=== PATIENT | male | born 1960 | race Hispanic/Latino ===

== ENCOUNTER 2016-10-15 15:43 | Emergency (ER) | payer MEDICARE ==
[2016-10-15 15:43] VITALS: BMI 25.8
[2016-10-15 16:21] VITALS: BP 130/71; PULSE 110; RESP 20; TEMP 97.9; O2SAT 99
--- NOTE | 2016-10-15 19:04 | ED PDOC ---
"Lower Extremity Pain/Injury Time Seen by Provider: 10/15/16 17:12 Chief Complaint (Nursing): Lower Extremity Problem/Injury Chief Complaint (Provider): Lower Extremity Problem History Per: Patient History/Exam Limitations: no limitations Onset/Duration Of Symptoms: Days (x2-3 months) Current Symptoms Are (Timing): Still Present Severity: Moderate Additional Complaint(s): Deshaun Mendoza is a 55 year old male, with a past medical history of CAD, CHF, HTN, and HLD, who presents to the emergency department complaining of bilateral groin pain for the past 2 to 3 months. Patient states having a cardiac catheterization test done in his right groin at [facility] and having a coronary stent placement done in his left groin at [facility] which reportedly caused pain to radiate throughout his thighs bilaterally. He recently had an MRI done by Dr. Driver which caused him to find out that he had a mild spinal disease. Patient comes to the ER today looking to be prescribed medication for pain relief. Of note, the patient has been taking Advil and Tylenol for his pain; however, it has provided no relief, prompting his visit to the emergency department. PMD: Mervat Zambrano Past Medical History Reviewed: Historical Data, Nursing Documentation, Vital Signs Vital Signs: Last Vital Signs Temp 97.9 F 10/15/16 16:17 Pulse 110 H 10/15/16 16:17 Resp 20 10/15/16 16:17 BP 130/71 10/15/16 16:17 Pulse Ox 99 10/15/16 16:17 - Medical History PMH: Asthma, Bronchitis, CAD, CHF, COPD, Fractures (right foot), Hiatal Hernia, HTN, Hyperlipidemia, Pneumothorax, Schizophrenia (denies) Denies: Chronic Kidney Disease - Surgical History Surgical History: Coronary Stent (x2) - Family History Family History: States: Unknown Family Hx - Social History Current smoker - smoking cessation education provided: Yes (10-15 cigarettes daily) Alcohol: Occasional Drugs: Denies - Immunization History Hx Tetanus Toxoid Vaccination: No Hx Influenza Vaccination: No Hx Pneumococcal Vaccination: No - Home Medications Home Medications: Ambulatory Orders Medication Instructions Recorded Metoprolol Tartrate [Lopressor] 25 mg PO BID 04/25/16 Aspirin [Aspirin Chewable] 81 mg PO DAILY 07/25/16 Clopidogrel [Plavix] 75 mg PO DAILY 07/25/16 Atorvastatin [Lipitor] 40 mg DAILY 09/06/16 Gabapentin [Neurontin] 100 mg HS 09/06/16 Omeprazole [Omeprazole] 20 mg DAILY 09/06/16 Tramadol HCl [Ultram] 50 mg PO BID PRN #14 tablet 09/06/16 - Allergies Allergies/Adverse Reactions: Allergies Allergy/AdvReac Type Severity Reaction Status Date / Time No Known Allergies Allergy Verified 10/15/16 16:17 Review of Systems Musculoskeletal: Positive for: Back Pain, Leg Pain Skin: Negative for: Rash Neurological: Negative for: Weakness, Numbness Physical Exam - Reviewed Nursing Documentation Reviewed: Yes Vital Signs Reviewed: Yes - Physical Exam Appears: Positive for: Non-toxic, No Acute Distress Head Exam: Positive for: ATRAUMATIC, NORMOCEPHALIC Skin: Positive for: Normal Color, Dry Eye Exam: Positive for: Normal appearance Neck: Positive for: Normal, Painless ROM Respiratory: Negative for: Respiratory Distress Pulses-Dorsalis Pedis (L): 2+ Pulses-Dorsalis Pedis (R): 2+ Pulses-Post. Tibialis (L): 2+ Pulses-Post. Tibialis (R): 2+ Extremity: Positive for: Normal ROM. Negative for: Tenderness, Pedal Edema, Calf Tenderness, Swelling, Other (no ecchymosis) Neurologic/Psych: Positive for: Alert, Oriented. Negative for: Motor/Sensory Deficits - ECG O2 Sat by Pulse Oximetry: 99 (RA) - Progress ED Course And Treament: IMPRESSION: No occlusion. No pseudoaneurysm. CARAASHISHDESHAUN | Final Radiology Report CONFIDENTIALITY STATEMENT This report is intended only for use by the referring physician, and only in accordance with law. If you received this in error, call [phone]. Page 2 of 2 Thank you for allowing us to participate in the care of your patient. Dictated and Authenticated by: Yandel Sullivan MD Medical Decision Making Medical Decision Makin:12 Initial Impression: bilateral groin pain Initial Plan: * US Duplex Lower Extrm Artr Bilat * Ultram 50mg PO * Reevaluation Scribe Attestation: Documented by Ozzy Murphy, training under Aziza Novak, acting as a scribe for Heaven KASPER. Provider Scribe Attestation: All medical record entries made by the Scribe were at my direction and personally dictated by me. I have reviewed the chart and agree that the record accurately reflects my personal performance of the history, physical exam, medical decision making, and the department course for this patient. I have also personally directed, reviewed, and agree with the discharge instructions and disposition. Disposition - Clinical Impression Clinical Impression: Groin pain - Patient ED Disposition Is Patient to be Admitted: No - Disposition Disposition: Routine/Home Disposition Time: 21:19 Condition: FAIR Additional Instructions: f/u with your pmd for further evaluation. Instructions: Muscle Strain (ED)"
--- NOTE | 2016-10-15 21:08 | US ---
EXAM: US Duplex Bilateral Lower Extremity Arteries CLINICAL HISTORY: 55 years old, male; Signs and symptoms; Other: Cluadication; Additional info: Evaluation of pseudoaneurysm TECHNIQUE: Real-time ultrasound scan of the arteries of the bilateral lower extremities with 2-D wagoner scale, color Doppler flow and spectral waveform analysis. COMPARISON: No relevant prior studies available. FINDINGS: RIGHT- BUSINESS IMPROVEMENT MANAGER: 130 cm/s, triphasic SFA proximal: 62 cm/s, triphasic SFA mid: 44 cm/s, triphasic SFA distal: 41 cm/s, triphasic Popliteal: 27 cm/s, biphasic COSTA: 37 cm/s, biphasic DIETARY ASSISTANT: 25 cm/s, biphasic DPA: 36 cm/s, biphasic LEFT - BUSINESS IMPROVEMENT MANAGER: 78 cm/s, triphasic SFA proximal: 45 cm/s, triphasic SFA mid: 52 cm/s, triphasic SFA distal: 55 cm/s, triphasic Popliteal: 35 cm/s, triphasic COSTA: 25 cm/s, triphasic DIETARY ASSISTANT: 26 cm/s, biphasic DPA: 30 cm/s, biphasic IMPRESSION: No occlusion. No pseudoaneurysm.
== END 2016-10-15 21:31 | disposition home or self-care (01) ==
LOC: H.ER 15:43
DX: R10.30 Lower abdominal pain, unspecified (principal); Z98.890 Other specified postprocedural states

== ENCOUNTER 2017-01-07 17:28 | Emergency (ER) | payer MEDICARE ==
[2017-01-07 17:29] VITALS: BMI 25.8
--- NOTE | 2017-01-07 18:29 | ED PDOC ---
HPI: CCC, URI, Sore Throat Time Seen by Provider: 01/07/17 17:40 Chief Complaint (Nursing): Cough, Cold, Congestion Chief Complaint (Provider): Cough History Per: Patient History/Exam Limitations: no limitations Onset/Duration Of Symptoms: Days (3) Current Symptoms Are (Timing): Still Present Associated Symptoms: Sore Throat, Sputum, Nasal Congestion. denies: Fever Additional Complaint(s): Bill Mendoza is a 56 y/o male, with a past medical history of COPD, PTX, and multiple leg fractures, presenting to the ER on 01/07/2017 with complaints of a cough associated with green sputum for three days. Patient states his cough gets worse as night and is associated with pain near his rib cage, dyspnea, throat tightness, and rhinorrhea. He denies any fever. He follows up routinely with the clinic. Patient additionally states he takes baby aspirin every morning and has not used his inhaler in over a month. Past Medical History Reviewed: Historical Data, Nursing Documentation, Vital Signs Vital Signs: Last Vital Signs Temp 98.6 F 01/07/17 22:15 Pulse 100 H 01/07/17 22:15 Resp 18 01/07/17 22:15 BP 119/79 01/07/17 22:15 Pulse Ox 98 01/08/17 05:28 - Medical History PMH: Asthma, Bronchitis, CAD, CHF, COPD, Fractures (right foot), Hiatal Hernia, HTN, Hyperlipidemia, Pneumothorax, Schizophrenia (denies) Denies: Chronic Kidney Disease - Surgical History Surgical History: Coronary Stent (x2) - Family History Family History: States: Unknown Family Hx - Social History Current smoker - smoking cessation education provided: Yes (6 cigarettes per day ) - Immunization History Hx Tetanus Toxoid Vaccination: No Hx Influenza Vaccination: No Hx Pneumococcal Vaccination: No - Home Medications Home Medications: Ambulatory Orders Medication Instructions Recorded Metoprolol Tartrate [Lopressor] 25 mg PO BID 04/25/16 Aspirin [Aspirin Chewable] 81 mg PO DAILY 07/25/16 Clopidogrel [Plavix] 75 mg PO DAILY 07/25/16 Atorvastatin [Lipitor] 40 mg DAILY 09/06/16 Gabapentin [Neurontin] 100 mg HS 09/06/16 Omeprazole [Omeprazole] 20 mg DAILY 09/06/16 Tramadol HCl [Ultram] 50 mg PO BID PRN #14 tablet 09/06/16 Albuterol HFA [Ventolin HFA 90 1 - 2 puff IH Q4H PRN #1 bottle 01/07/17 mcg/actuation (8 g)] predniSONE [Prednisone] 40 mg PO DAILY #8 tab 01/07/17 - Allergies Allergies/Adverse Reactions: Allergies Allergy/AdvReac Type Severity Reaction Status Date / Time No Known Allergies Allergy Verified 01/07/17 17:31 Review of Systems ROS Statement: Except As Marked, All Systems Reviewed And Found Negative Constitutional: Negative for: Fever ENT: Positive for: Nose Congestion, Throat Pain Respiratory: Positive for: Cough, Sputum, Other ((+) dyspnea ) Musculoskeletal: Positive for: Other ((+) rib pain ) Physical Exam - Reviewed Nursing Documentation Reviewed: Yes Vital Signs Reviewed: Yes - Physical Exam Appears: Positive for: Non-toxic, No Acute Distress. Negative for: Uncomfortable (pt appears comfortable ) Head Exam: Positive for: ATRAUMATIC, NORMOCEPHALIC Skin: Positive for: Normal Color. Negative for: Rash Eye Exam: Positive for: Normal appearance, EOMI, PERRL Cardiovascular/Chest: Positive for: Tachycardia Respiratory: Positive for: Wheezing (occasional bilat ) Pulses-Radial (L): 2+ Pulses-Radial (R): 2+ Gastrointestinal/Abdominal: Positive for: Normal Exam, Soft. Negative for: Tenderness Extremity: Positive for: Normal ROM. Negative for: Deformity Neurologic/Psych: Positive for: Alert, Oriented. Negative for: Motor/Sensory Deficits - Laboratory Results Result Diagrams: 01/07/17 19:23 01/07/17 19:23 - ECG ECG Rhythm: Positive for: Normal QRS, Sinus Tachycardia (@ 103 ). Negative for : ST/T Changes O2 Sat by Pulse Oximetry: 98 Medical Decision Making Medical Decision Makin:40 Initial Impression- Differential Dx includes but not limited to: pneumonia, bronchitis, COPD exacerbation Initial Plan- * EKG * BMP * Troponin * CBC w/ differential * CXR * Duoneb 3 ml INH * Solumedrol 125 mg IVP * Blood Cx * Re-eval 19:00 Signing pt out to Dr. Vanessa MD. Pending CXR, labs, and dispo. Documented by Kirby Carter, acting as a scribe for Amor Colorado MD. All medical record entries made by the Scribe were at my direction and personally dictated by me. I have reviewed the chart and agree that the record accurately reflects my personal performance of the history, physical exam, medical decision making, and the department course for this patient. I have also personally directed, reviewed, and agree with the discharge instructions and disposition. Disposition - Clinical Impression Clinical Impression: COPD (chronic obstructive pulmonary disease) - Patient ED Disposition Is Patient to be Admitted: Transfer of Care - Disposition Referrals: [facility] [Outside] [facility] [Outside] Disposition: Transfer of Care Disposition Time: 19:00 Condition: IMPROVED Additional Instructions: follow up with your primary doctor in 1-2 days return to the ED with any worsening or concerning symptoms. Prescriptions: Albuterol HFA [Ventolin HFA 90 mcg/actuation (8 g)] 1 - 2 puff IH Q4H PRN #1 bottle PRN Reason: Wheezing predniSONE [Prednisone] 40 mg PO DAILY #8 tab Instructions: COPD (Chronic Obstructive Pulmonary Disease) (ED) Patient Signed Over To: Emy Mendez
[2017-01-07] MEDS ORDERED: Albuterol-Ipratrop 3 mg / 0.5 (3 ml) UD INH STA ×2 (18:49→22:20)
--- NOTE | 2017-01-07 19:24 | ED PDOC ---
- Laboratory Results Result Diagrams: 01/07/17 19:23 01/07/17 19:23 - ECG O2 Sat by Pulse Oximetry: 98 Medical Decision Making Medical Decision Makin:00 Pt signed out to me by Dr. Stanislav MD. Pending CXR, labs, and final disposition. Documented by Kirby Carter, acting as a scribe for Emy Mendez MD. 22:21 CXR FINDINGS FINDINGS: Heart: The heart is normal in size. Mediastinum: There are calcifications in the aortic knob. There is a hiatal hernia. Vascularity: Pulmonary vascularity is normal. Lungs and pleural spaces: There is apical pleural thickening bilaterally right greater than left. There is minimal scarring at the left base, unchanged. There are no focal consolidations Osseous structures: Bony structures are osteopenic Impression: No acute disease in the chest; osteopenia greater than expected for patient's age and sex; hiatal hernia Pt was re-evaluated and reports improvement in pain. Pt will be discharged routinely. Pt was encouraged to schedule a follow up with his PMD within 2-3 days and to return if condition persists or worsens. All medical record entries made by the Scribe were at my direction and personally dictated by me. I have reviewed the chart and agree that the record accurately reflects my personal performance of the history, physical exam, medical decision making, and the department course for this patient. I have also personally directed, reviewed, and agree with the discharge instructions and disposition. Disposition Counseled Patient/Family Regarding: Studies Performed, Diagnosis, Need For Followup - Clinical Impression Clinical Impression: COPD (chronic obstructive pulmonary disease) - POA Present On Arrival: None - Disposition Referrals: [facility] [Outside] [facility] [Outside] Disposition: Routine/Home Disposition Time: 05:00 Condition: IMPROVED Additional Instructions: follow up with your primary doctor in 1-2 days return to the ED with any worsening or concerning symptoms. Prescriptions: Albuterol HFA [Ventolin HFA 90 mcg/actuation (8 g)] 1 - 2 puff IH Q4H PRN #1 bottle PRN Reason: Wheezing predniSONE [Prednisone] 40 mg PO DAILY #8 tab Instructions: COPD (Chronic Obstructive Pulmonary Disease) (ED)
[2017-01-07 19:50] LABS: BASO % 0.3 % (0.0-2.0); EOS # 0.2 K/uL (0.0-0.7); EOS % 1.7 % (0.0-4.0); HEMATOCRIT 37.9 % (35.0-51.0); LYMPH # 2.2 K/uL (1.0-4.3); LYMPH % 17.3 % (20.0-40.0); MEAN CELL VOLUME 85.7 fl (80.0-94.0); MEAN CORPUSCULAR HEMOGLOBIN 28.3 pg (27.0-31.0); MEAN CORPUSCULAR HGB CONC 33.1 g/dL (33.0-37.0); MEAN PLATELET VOLUME 9.3 fl (7.2-11.7); MONO # 0.7 K/uL (0.0-0.8); MONO % 5.7 % (0.0-10.0); NEUT # 9.5 K/uL (1.8-7.0); RED CELL DISTRIBUTION WIDTH 15.5 % (11.5-14.5); WHITE BLOOD COUNT 12.7 K/uL (4.8-10.8)
[2017-01-07 19:57] LABS: BLOOD UREA NITROGEN 9 mg/dl (9-20); CALCIUM 9.1 mg/dL (8.4-10.2); CARBON DIOXIDE 28 mmol/L (22-30); CHLORIDE 106 mmol/L (98-107); GFR AFRICAN-AMERICAN > 60; GLUCOSE,RANDOM 90 mg/dL (75-110); SODIUM 140 mmol/l (132-148)
--- NOTE | 2017-01-07 20:56 | CARD ---
APPROVED REPORT EKG Measurement Heart [id number] <Conclusion> Sinus tachycardia Left anterior fascicular block Cannot rule out Inferior infarct (masked by fascicular block?), age undetermined Abnormal ECG
--- NOTE | 2017-01-07 22:02 | RAD ---
EXAM: XR Chest, 2 Views CLINICAL HISTORY: 56 years old, male; Pain; Chest pain TECHNIQUE: Frontal and lateral views of the chest. EXAM DATE/TIME: 01/07/2017 6:41 PM COMPARISON: CR - CHEST PORTABLE 07/25/2016 3:39:38 AM FINDINGS: Heart: The heart is normal in size. Mediastinum: There are calcifications in the aortic knob. There is a hiatal hernia. Vascularity: Pulmonary vascularity is normal. Lungs and pleural spaces: There is apical pleural thickening bilaterally right greater than left. There is minimal scarring at the left base, unchanged. There are no focal consolidations Osseous structures: Bony structures are osteopenic Impression: No acute disease in the chest; osteopenia greater than expected for patient's age and sex; hiatal hernia
[2017-01-07 22:17] VITALS: BP 119/79; PULSE 100; RESP 18; TEMP 98.6
[2017-01-07 22:21] VITALS: O2SAT 98
== END 2017-01-07 22:50 | disposition home or self-care (01) ==
LOC: H.ER 17:28
DX: J44.9 Chronic obstructive pulmonary disease, unspecified (principal); Z95.5 Presence of coronary angioplasty implant and graft
CPT/HCPCS: 71020; 80048; 84484; 85025; 87040; 93005; 94150; 94640; 96374; 99283; J2930

== ENCOUNTER 2017-02-01 17:51 | Emergency (ER) | payer MEDICARE ==
[2017-02-01 17:51] VITALS: BMI 25.8
[2017-02-01 18:00] VITALS: BP 150/70; PULSE 70; RESP 20; TEMP 99; O2SAT 98
--- NOTE | 2017-02-01 18:10 | ED PDOC ---
HPI: Back Time Seen by Provider: 02/01/17 17:58 Chief Complaint (Nursing): Back Pain Chief Complaint (Provider): Back and Groin Pain History Per: Patient History/Exam Limitations: no limitations Onset/Duration Of Symptoms: Days (x 7 months) Current Symptoms Are (Timing): Still Present Additional Complaint(s): Bill Mendoza is a 56 y/o male who presents to the emergency department with complaints of constant back and groin pain, ongoing since New Years July 2016. He is s/p stent placement surgery two years ago, and follows up at the clinic in [place]. He has returned to see his surgeon regarding the pain , who told the patient everything appeared fine. Patient reports having an MRI done that showed a pinched nerve in his back, and he was also told he has arthritis. He denies urinary symptoms. Patient describes pain as constant and severe. On review of previous studies, ultrasound duplexes negative for arterial and venous clots. Stenosis and disc bulge present. PMD: Unknown Past Medical History Reviewed: Historical Data, Nursing Documentation, Vital Signs Vital Signs: Last Vital Signs Temp 99 F 02/01/17 17:58 Pulse 70 02/01/17 17:58 Resp 20 02/01/17 17:58 BP 150/70 02/01/17 17:58 Pulse Ox 98 02/01/17 17:58 - Medical History PMH: Asthma, Bronchitis, CAD, CHF, COPD, Fractures (right foot), Hiatal Hernia, HTN, Hyperlipidemia, Pneumothorax, Schizophrenia (denies) Denies: Chronic Kidney Disease - Surgical History Surgical History: Coronary Stent (x2) - Family History Family History: States: Unknown Family Hx - Social History Current smoker - smoking cessation education provided: Yes (Light) Alcohol: Social Drugs: Denies - Immunization History Hx Tetanus Toxoid Vaccination: No Hx Influenza Vaccination: No Hx Pneumococcal Vaccination: No - Home Medications Home Medications: Ambulatory Orders Medication Instructions Recorded Metoprolol Tartrate [Lopressor] 25 mg PO BID 04/25/16 RX: Aspirin [Aspirin Chewable] 81 mg PO DAILY 07/25/16 RX: Clopidogrel [Plavix] 75 mg PO DAILY 07/25/16 Omeprazole [Omeprazole] 20 mg DAILY 09/06/16 RX: Atorvastatin [Lipitor] 40 mg DAILY 09/06/16 RX: Gabapentin [Neurontin] 100 mg HS 09/06/16 Tramadol HCl [Ultram] 50 mg PO BID PRN #14 tablet 09/06/16 RX: Albuterol HFA [Ventolin HFA 90 1 - 2 puff IH Q4H PRN #1 bottle 01/07/17 mcg/actuation (8 g)] predniSONE [Prednisone] 40 mg PO DAILY #8 tab 01/07/17 Ketorolac Tromethamine [Toradol] 10 mg PO SAT #20 tab 02/01/17 - Allergies Allergies/Adverse Reactions: Allergies Allergy/AdvReac Type Severity Reaction Status Date / Time No Known Allergies Allergy Verified 02/01/17 17:57 Review of Systems ROS Statement: Except As Marked, All Systems Reviewed And Found Negative Gastrointestinal: Negative for: Nausea, Vomiting, Diarrhea Genitourinary Male: Negative for: Dysuria, Frequency Musculoskeletal: Positive for: Neck Pain, Back Pain, Other (Groin pain) Physical Exam - Reviewed Nursing Documentation Reviewed: Yes Vital Signs Reviewed: Yes - Physical Exam Appears: Positive for: Non-toxic, No Acute Distress Head Exam: Positive for: ATRAUMATIC, NORMAL INSPECTION, NORMOCEPHALIC Skin: Positive for: Normal Color, Warm, Dry Eye Exam: Positive for: EOMI, Normal appearance, PERRL ENT: Positive for: Normal ENT Inspection Neck: Positive for: Normal, Supple Cardiovascular/Chest: Positive for: Regular Rate, Rhythm. Negative for: Murmur Respiratory: Positive for: Normal Breath Sounds. Negative for: Accessory Muscle Use, Respiratory Distress Pulses-Dorsalis Pedis (L): 2+ Pulses-Dorsalis Pedis (R): 2+ Male Genital Exam: Positive for: inguinal tenderness (with bruising to the groin as well) Back: Positive for: Vertebral Tenderness (some midline lumbar tenderness) Extremity: Positive for: Calf Tenderness (bilaterally). Negative for: Pedal Edema (No acute swelling) Neurologic/Psych: Positive for: Alert, Oriented - ECG O2 Sat by Pulse Oximetry: 98 (RA) Pulse Ox Interpretation: Normal Medical Decision Making Medical Decision Making: Time: 18:10 Initial Impression: Rule out clot Initial Plan: --Given Tramadol 50 mg to control pain --Duplex Ultrasound ordered-negative for DVT --pt will be d/ torodol PO for pain control and advised to f.u with pain mngt Scribe Attestation: Documented by Rima Santana, acting as a scribe for Tia Gama PA-C. Provider Scribe Attestation: All medical record entries made by the Scribe were at my direction and personally dictated by me. I have reviewed the chart and agree that the record accurately reflects my personal performance of the history, physical exam, medical decision making, and the department course for this patient. I have also personally directed, reviewed, and agree with the discharge instructions and disposition. Disposition - Clinical Impression Clinical Impression: Chronic back pain - Patient ED Disposition Is Patient to be Admitted: No Counseled Patient/Family Regarding: Studies Performed, Diagnosis, Need For Followup, Rx Given - Disposition Referrals: [facility] [Outside] [facility] [Provider Group] [facility] [Provider Group] Disposition: Routine/Home Disposition Time: 18:17 Condition: STABLE Prescriptions: Ketorolac Tromethamine [Toradol] 10 mg PO SAT #20 tab Instructions: Sciatica (ED), Lumbar Radiculopathy (ED)
--- NOTE | 2017-02-02 14:55 | US ---
PROCEDURE: Bilateral lower extremity venous duplex Doppler. HISTORY: b/l pain COMPARISON: None available. TECHNIQUE: Bilateral common femoral, superficial femoral, popliteal and posterior tibial veins were evaluated. Flow was assessed with color Doppler, compressibility, assessment of phasic flow and augmentation response. FINDINGS: COMMON FEMORAL VEIN: Right CFV: Unremarkable. Left CFV: Unremarkable. SUPERFICIAL FEMORAL VEIN: Right SFV: Unremarkable. Left SFV: Unremarkable. POPLITEAL VEIN: Right Popliteal: Unremarkable. Left Popliteal: Unremarkable. POSTERIOR TIBIAL VEIN: Right PTV: Unremarkable. Left PTV: Unremarkable. OTHER FINDINGS: None. IMPRESSION: No evidence of deep venous thrombosis. Preliminary interpretation of this examination was reported by [facility] at 7:55 p.m. on 02/01/2017. There is concurrence of this report with the preliminary interpretation.
== END 2017-02-01 19:56 | disposition home or self-care (01) ==
LOC: H.ER 17:51
DX: M54.30 Sciatica, unspecified side (principal); M54.16 Radiculopathy, lumbar region

== ENCOUNTER 2017-03-25 12:48 | Emergency (ER) | payer MEDICARE ==
[2017-03-25 12:48] VITALS: BMI 25.8
[2017-03-25 12:54] VITALS: TEMP 98
--- NOTE | 2017-03-25 13:23 | ED PDOC ---
HPI: SOB/CHF/COPD Time Seen by Provider: 03/25/17 12:59 Chief Complaint (Nursing): Rib Injury History Per: Patient History/Exam Limitations: no limitations Past Medical History Vital Signs: Last Vital Signs Temp 98.0 F 03/25/17 12:50 Pulse 133 H 03/25/17 12:50 Resp 20 03/25/17 12:50 BP 122/62 03/25/17 12:50 Pulse Ox 99 03/25/17 12:50 - Medical History PMH: Asthma, Bronchitis, CAD, CHF, COPD, Fractures (right foot), Hiatal Hernia, HTN, Hyperlipidemia, Pneumothorax, Schizophrenia (denies) Denies: Chronic Kidney Disease - Surgical History Surgical History: Coronary Stent (x2) - Family History Family History: States: Unknown Family Hx - Immunization History Hx Tetanus Toxoid Vaccination: No Hx Influenza Vaccination: No Hx Pneumococcal Vaccination: No - Home Medications Home Medications: Ambulatory Orders Medication Instructions Recorded Metoprolol Tartrate [Lopressor] 25 mg PO BID 04/25/16 Aspirin [Aspirin Chewable] 81 mg PO DAILY 07/25/16 Clopidogrel [Plavix] 75 mg PO DAILY 07/25/16 Atorvastatin [Lipitor] 40 mg DAILY 09/06/16 Gabapentin [Neurontin] 100 mg HS 09/06/16 Omeprazole [Omeprazole] 20 mg DAILY 09/06/16 Tramadol HCl [Ultram] 50 mg PO BID PRN #14 tablet 09/06/16 Albuterol HFA [Ventolin HFA 90 1 - 2 puff IH Q4H PRN #1 bottle 01/07/17 mcg/actuation (8 g)] predniSONE [Prednisone] 40 mg PO DAILY #8 tab 01/07/17 Ketorolac Tromethamine [Toradol] 10 mg PO SAT #20 tab 02/01/17 - Allergies Allergies/Adverse Reactions: Allergies Allergy/AdvReac Type Severity Reaction Status Date / Time No Known Allergies Allergy Verified 02/01/17 17:57 - ECG O2 Sat by Pulse Oximetry: 99 Medical Decision Making Medical Decision Making: Time: 13:14 Initial impression: Shortness of breath Initial plan: Labs Chest X-Ray Tylenol 650 mg PO Right Hip X-ray Reevaluation Scribe Attestation: Documented by Cori Watters, acting as a scribe for Justus Blackwell DO. Provider Scribe Attestation: All medical record entries made by the Scribe were at my direction and personally dictated by me. I have reviewed the chart and agree that the record accurately reflects my personal performance of the history, physical exam, medical decision making, and the department course for this patient. I have also personally directed, reviewed, and agree with the discharge instructions and disposition. Disposition - Disposition Forms: [facility] (Guyanese)
--- NOTE | 2017-03-25 13:53 | ED PDOC ---
HPI: Back Time Seen by Provider: 03/25/17 12:59 Chief Complaint (Nursing): Rib Injury Chief Complaint (Provider): fall, back, pelvis and chest discomfort History Per: Patient History/Exam Limitations: no limitations Current Symptoms Are (Timing): Still Present Quality Of Discomfort: Sharp Severity: Mild Previous Symptoms: Back Pain, Chronic Pain Exacerbating Factor(s): Turning, Sitting, Standing Additional Complaint(s): 56yo male states slip/ fall getting out of shower, c/o bilateral upper leg/ pelvis pain, left chest wall pain. Denies hitting head or neck. Denies LOC. Has cardiac history, takes ASA 81mg daily but denies other blood thinners. States has recently noticed other bruising to skin not associated with injuries. PMD TNC Prior chart reviewed patient w cath and double vessel disease 11/27 Past Medical History Vital Signs: Last Vital Signs Temp 98.0 F 03/25/17 12:50 Pulse 133 H 03/25/17 12:50 Resp 20 03/25/17 12:50 BP 122/62 03/25/17 12:50 Pulse Ox 99 03/25/17 12:50 - Medical History PMH: Asthma, Bronchitis, CAD, CHF, COPD, Fractures (right foot), Hiatal Hernia, HTN, Hyperlipidemia, Pneumothorax, Schizophrenia (denies) Denies: Chronic Kidney Disease - Surgical History Surgical History: Coronary Stent (x2) - Family History Family History: States: Unknown Family Hx - Immunization History Hx Tetanus Toxoid Vaccination: No Hx Influenza Vaccination: No Hx Pneumococcal Vaccination: No - Home Medications Home Medications: Ambulatory Orders Medication Instructions Recorded Metoprolol Tartrate [Lopressor] 25 mg PO BID 04/25/16 Aspirin [Aspirin Chewable] 81 mg PO DAILY 07/25/16 Clopidogrel [Plavix] 75 mg PO DAILY 07/25/16 Atorvastatin [Lipitor] 40 mg DAILY 09/06/16 Gabapentin [Neurontin] 100 mg HS 09/06/16 Omeprazole [Omeprazole] 20 mg DAILY 09/06/16 Tramadol HCl [Ultram] 50 mg PO BID PRN #14 tablet 09/06/16 Albuterol HFA [Ventolin HFA 90 1 - 2 puff IH Q4H PRN #1 bottle 01/07/17 mcg/actuation (8 g)] predniSONE [Prednisone] 40 mg PO DAILY #8 tab 01/07/17 Ketorolac Tromethamine [Toradol] 10 mg PO SAT #20 tab 02/01/17 Ibuprofen [Motrin Tab] 600 mg PO Q6 PRN #15 tab 03/25/17 - Allergies Allergies/Adverse Reactions: Allergies Allergy/AdvReac Type Severity Reaction Status Date / Time No Known Allergies Allergy Verified 02/01/17 17:57 - Laboratory Results Result Diagrams: 03/25/17 13:45 03/25/17 15:00 - ECG O2 Sat by Pulse Oximetry: 99 Pulse Ox Interpretation: Normal Medical Decision Making Medical Decision Making: labs obtained given report bruising, check plt and coags CXR and pelvis XRay ordered given fall. Accession No. : [id number] Patient Name / ID : ANDRES Aleman [id number] Exam Date : 03/25/2017 14:35:38 ( Approved ) Study Comment : Sex / Age : M / Y Creator : Stephen Austin MD Dictator : Stephen Austin MD Maintenance Equipment Operator : Lens Hardener : Stephen Austin MD Approver2 : Report Date : 03/25/2017 16:48:23 My Comment : PROCEDURE: Pelvis right hip HISTORY: R hip pain s/p fall COMPARISON: None TECHNIQUE: Standard protocol for this study/examination. FINDINGS: No evidence of pelvis/ hip fracture. Mild degenerative changes right hip. Severe degenerative changes with deformity of the head of the left femur. The femoral head is subluxed superiorly and laterally. A component of osteonecrosis left hip is likely. IMPRESSION: No acute findings related to/accounting for the clinical presentation. Accession No. : [id number] Patient Name / ID : ANDRES Aleman [id number] Exam Date : 03/25/2017 14:33:18 ( Approved ) Study Comment : Sex / Age : M / Y Creator : Stephen Austin MD Dictator : Stephen Austin MD Maintenance Equipment Operator : Lens Hardener : Stephen Austin MD Approver2 : Report Date : 03/25/2017 15:24:23 My Comment : HISTORY: Generalized pain COMPARISON: 01/07/2017 TECHNIQUE: Chest PA and lateral FINDINGS: LUNGS: Hyperinflation, manifestations of COPD. No active pulmonary disease. PLEURA: Stable apical pleural thickening. CARDIOVASCULAR: Normal. OSSEOUS STRUCTURES: No significant abnormalities. VISUALIZED UPPER ABDOMEN: Normal. OTHER FINDINGS: Stable hiatal hernia IMPRESSION: No active disease. No significant interval change compared to the prior examination(s). Pt monitored in ED 4+ hrs, improved, HR currently 90bpm SPO2 96% RA. No resp distress. L hip issue appears chronic- states pain ongoing for years. Likely needs ortho eval. Rx ibuprofen, takes oxycodone at home per patient. Results and need for followup explained. Disposition - Clinical Impression Clinical Impression: Hip pain, Degenerative joint disease (DJD) of hip - Patient ED Disposition Is Patient to be Admitted: No Counseled Patient/Family Regarding: Studies Performed, Diagnosis, Need For Followup, Rx Given - Disposition Referrals: [facility] [Outside] Disposition: Routine/Home Disposition Time: 17:01 Condition: STABLE Additional Instructions: See orthopedist for evaluation of chronic hip pain. Return to ER for any new or worsening symptoms. Prescriptions: Ibuprofen [Motrin Tab] 600 mg PO Q6 PRN #15 tab PRN Reason: Pain, Moderate (4-7) Instructions: Arthralgia (ED), Hip Pain (ED)
[2017-03-25 14:10] LABS: BASO # 0.1 K/uL (0.0-0.2); BASO % 0.6 % (0.0-2.0); EOS # 0.1 K/uL (0.0-0.7); HEMATOCRIT 41.7 % (35.0-51.0); LYMPH # 1.7 K/uL (1.0-4.3); LYMPH % 12.8 % (20.0-40.0); MEAN CELL VOLUME 86.6 fl (80.0-94.0); MEAN CORPUSCULAR HEMOGLOBIN 28.4 pg (27.0-31.0); MEAN CORPUSCULAR HGB CONC 32.8 g/dL (33.0-37.0); MONO # 0.5 K/uL (0.0-0.8); MONO % 3.9 % (0.0-10.0); NEUT # 10.8 K/uL (1.8-7.0); NEUT % 81.7 % (50.0-75.0); RED CELL DISTRIBUTION WIDTH 14.9 % (11.5-14.5); WHITE BLOOD COUNT 13.2 K/uL (4.8-10.8)
[2017-03-25 15:08] LABS: BLOOD UREA NITROGEN 18 mg/dl (9-20); CALCIUM 9.3 mg/dL (8.4-10.2); CARBON DIOXIDE 26 mmol/L (22-30); CHLORIDE 105 mmol/L (98-107); GFR AFRICAN-AMERICAN > 60; GLUCOSE,RANDOM 114 mg/dL (75-110); SODIUM 142 mmol/l (132-148)
--- NOTE | 2017-03-25 15:25 | RAD ---
HISTORY: Generalized pain COMPARISON: 01/07/2017 TECHNIQUE: Chest PA and lateral FINDINGS: LUNGS: Hyperinflation, manifestations of COPD. No active pulmonary disease. PLEURA: Stable apical pleural thickening. CARDIOVASCULAR: Normal. OSSEOUS STRUCTURES: No significant abnormalities. VISUALIZED UPPER ABDOMEN: Normal. OTHER FINDINGS: Stable hiatal hernia IMPRESSION: No active disease. No significant interval change compared to the prior examination(s).
[2017-03-25 15:29] LABS: POTASSIUM 3.7 MMOL/L (3.6-5.0)
--- NOTE | 2017-03-25 16:50 | RAD ---
PROCEDURE: Pelvis right hip HISTORY: R hip pain s/p fall COMPARISON: None TECHNIQUE: Standard protocol for this study/examination. FINDINGS: No evidence of pelvis/ hip fracture. Mild degenerative changes right hip. Severe degenerative changes with deformity of the head of the left femur. The femoral head is subluxed superiorly and laterally. A component of osteonecrosis left hip is likely. IMPRESSION: No acute findings related to/accounting for the clinical presentation.
[2017-03-25 17:23] VITALS: RESP 18
[2017-03-25 17:54] VITALS: BP 126/70; PULSE 89; O2SAT 97
[2017-03-25 17:57] LABS: PARTIAL THROMBOPLASTIN TIME 31.4 Seconds (25.6-37.1)
== END 2017-03-25 18:11 | disposition home or self-care (01) ==
LOC: H.ER 12:48
DX: M25.551 Pain in right hip (principal); W18.2XXA Fall in (into) shower or empty bathtub, initial encounter; Y93.E1 Activity, personal bathing and showering; Z79.82 Long term (current) use of aspirin; Z95.5 Presence of coronary angioplasty implant and graft

== ENCOUNTER 2018-02-08 16:49 | Emergency (ER) | payer MEDICARE ==
[2018-02-08 16:49] VITALS: BMI 25.8
[2018-02-08] MEDS ORDERED: DiphenhydrAMINE 50 mg/ml Inj IVP STA (17:13)
--- NOTE | 2018-02-08 17:14 | ED PDOC ---
HPI: Allergic Reaction Time Seen by Provider: 02/08/18 17:02 Chief Complaint (Nursing): Allergic Reaction Chief Complaint (Provider): Rash, Allergic Reaction History Per: Patient Additional Complaint(s): Bill Mendoza is a 57 year old male, with a past medical history of CAD, CHF, HTN, and HLD C/O allergic RX/hives since yesterday. Patient is S/P total right hip replacement 6 days ago and has started new medications after surgery, Morphine, Ferrous Sulfate, and Eliquis. Pt also taking Percocet; however, reports taking them in the past without adverse reaction. pt also noted to seemingly be short of breath, Pt admits to SOB since Sat when asked. No chest pain or palpitations. PMD: Mervat Zambrano Past Medical History Reviewed: Historical Data, Nursing Documentation, Vital Signs Vital Signs: Last Vital Signs Temp 98.2 F 02/08/18 16:57 Pulse 126 H 02/08/18 16:57 Resp 24 02/08/18 16:57 BP 128/70 02/08/18 16:57 Pulse Ox 98 02/08/18 16:57 - Medical History PMH: Asthma, Bronchitis, CAD, CHF, COPD, Fractures (right foot), Hiatal Hernia, HTN, Hyperlipidemia, Pneumothorax, Schizophrenia (denies) Denies: Chronic Kidney Disease - Surgical History Surgical History: Coronary Stent (x2) - Family History Family History: States: Unknown Family Hx - Social History Current smoker - smoking cessation education provided: No Alcohol: None Drugs: Denies - Immunization History Hx Tetanus Toxoid Vaccination: No Hx Influenza Vaccination: No Hx Pneumococcal Vaccination: No - Home Medications Home Medications: Ambulatory Orders Medication Instructions Recorded Metoprolol Tartrate [Lopressor] 25 mg PO BID 04/25/16 Aspirin [Aspirin Chewable] 81 mg PO DAILY 07/25/16 Clopidogrel [Plavix] 75 mg PO DAILY 07/25/16 Atorvastatin [Lipitor] 40 mg DAILY 09/06/16 Gabapentin [Neurontin] 100 mg HS 09/06/16 Omeprazole [Omeprazole] 20 mg DAILY 09/06/16 Tramadol HCl [Ultram] 50 mg PO BID PRN #14 tablet 09/06/16 Albuterol HFA [Ventolin HFA 90 1 - 2 puff IH Q4H PRN #1 bottle 01/07/17 mcg/actuation (8 g)] predniSONE [Prednisone] 40 mg PO DAILY #8 tab 01/07/17 Ketorolac Tromethamine [Toradol] 10 mg PO SAT #20 tab 02/01/17 Ibuprofen [Motrin Tab] 600 mg PO Q6 PRN #15 tab 03/25/17 - Allergies Allergies/Adverse Reactions: Allergies Allergy/AdvReac Type Severity Reaction Status Date / Time No Known Allergies Allergy Verified 02/08/18 16:57 Review of Systems ROS Statement: Except As Marked, All Systems Reviewed And Found Negative Respiratory: Positive for: Shortness of Breath Skin: Positive for: Rash Physical Exam - Reviewed Nursing Documentation Reviewed: Yes Vital Signs Reviewed: Yes - Physical Exam Appears: Positive for: Well, Non-toxic, No Acute Distress Head Exam: Positive for: ATRAUMATIC, NORMAL INSPECTION, NORMOCEPHALIC Skin: Positive for: Normal Color, Warm, Rash (maculopapular rash over torso, upper and lower extremities) Eye Exam: Positive for: EOMI, Normal appearance, PERRL ENT: Positive for: Normal ENT Inspection Neck: Positive for: Normal, Painless ROM Cardiovascular/Chest: Positive for: Regular Rate, Rhythm Respiratory: Positive for: CNT, Normal Breath Sounds Gastrointestinal/Abdominal: Positive for: Normal Exam, Soft Back: Positive for: Normal Inspection Extremity: Positive for: Normal ROM Neurologic/Psych: Positive for: Alert, Oriented - Laboratory Results Result Diagrams: 02/08/18 18:15 02/08/18 18:15 - ECG O2 Sat by Pulse Oximetry: 98 - Progress ED Course And Treament: IV access established and treatment initiated with IV Solumedrol and Benadryl. Diagnostics ordered. CTA ordered due to recent history of surgery and complaints of SOB, P:126 POX: 98% on RA Case endorsed to TESS Cameron at 1999 pending diagnostic review and re-eval Disposition - Clinical Impression Clinical Impression: Allergic reaction, Shortness of breath - Patient ED Disposition Is Patient to be Admitted: Transfer of Care - Disposition Disposition: Transfer of Care Disposition Time: 20:00 Condition: STABLE Forms: [facility] (Faroese)
--- NOTE | 2018-02-08 17:35 | RAD ---
Date of service: 02/08/2018 HISTORY: SOB, s/p Hip replacement COMPARISON: Chest radiograph dated 03/25/2017. FINDINGS: LUNGS: No active pulmonary disease. PLEURA: No significant pleural effusion identified, no pneumothorax apparent. CARDIOVASCULAR: Atherosclerotic aortic calcifications. Cardiomediastinal silhouette unchanged. OSSEOUS STRUCTURES: Unchanged. VISUALIZED UPPER ABDOMEN: Normal. OTHER FINDINGS: Stable large hiatal hernia. IMPRESSION: No active disease.
[2018-02-08] MEDS ORDERED: DiphenhydrAMINE 50 mg/ml Inj ONE (18:00)
[2018-02-08 18:19] LABS: BASO % 0.5 % (0.0-2.0); EOS # 0.5 K/uL (0.0-0.7); EOS % 4.7 % (0.0-4.0); LYMPH # 2.2 K/uL (1.0-4.3); LYMPH % 21.9 % (20.0-40.0); MEAN CELL VOLUME 77.2 fl (80.0-94.0); MEAN CORPUSCULAR HEMOGLOBIN 25.3 pg (27.0-31.0); MEAN CORPUSCULAR HGB CONC 32.7 g/dL (33.0-37.0); MEAN PLATELET VOLUME 9.4 fl (7.2-11.7); MONO # 0.6 K/uL (0.0-0.8); MONO % 5.6 % (0.0-10.0); NEUT # 6.7 K/uL (1.8-7.0); NEUT % 67.3 % (50.0-75.0); RBC 3.82 Mil/uL (4.40-5.90); RED CELL DISTRIBUTION WIDTH 17.6 % (11.5-14.5)
[2018-02-08 18:26] LABS: HEMOGLOBIN 9.7 g/dL (12.0-18.0)
[2018-02-08] MEDS ORDERED: Iodixanol 320 MG/ML 100 ML BOTTLE IV ONE (18:27)
[2018-02-08] MEDS ORDERED: Sodium Chloride 0.9% 50 ML IV ONE (18:27)
[2018-02-08 18:33] LABS: ALBUMIN 3.2 g/dL (3.5-5.0); ALT/SGPT 71 U/L (21-72); AST/SGOT 47 U/L (17-59); BLOOD UREA NITROGEN 10 mg/dl (9-20); CALCIUM 8.7 mg/dL (8.4-10.2); GFR NON-AFRICAN AMERICAN > 60
--- NOTE | 2018-02-08 20:40 | ED PDOC ---
- Laboratory Results Result Diagrams: 02/08/18 18:15 02/08/18 18:15 - ECG O2 Sat by Pulse Oximetry: 98 Medical Decision Making Medical Decision Making: Case endorsed to me from MAJO Haider at 1999. Lab results reviewed : hgb 9.7 ( labs done on 03/25/17 revealed patient's hgb was 13), trop (-), d-dimer (+). CXR showed NAD. CTA chest : FINDINGS: Pulmonary arteries: Unremarkable. No pulmonary embolism. Aorta: No acute findings. No thoracic aortic aneurysm. Lungs: There is moderate paraseptal G. emphysema, similar to prior exam. Multiple subpleural bullae measures 3.1 cm and the right thoracic apex. There is mild left lower lobe subsegmental atelectasis. No mass. A pulmonary nodule described in prior exam is not visualized on the current study. Pleural space: Unremarkable. No significant effusion. No pneumothorax. Heart: Unremarkable. No cardiomegaly. No significant pericardial effusion. No evidence of RV dysfunction. Mediastinum: There is a large hiatal hernia containing stomach. Bones/joints: No acute fracture. No dislocation. Soft tissues: Unremarkable. Lymph nodes: Unremarkable. No enlarged lymph nodes. IMPRESSION: No evidence of pulmonary embolism. Large hiatal hernia. Moderate paraseptal emphysema. Minimal to mild left lower lobe subsegmental atelectasis. Dictated and Authenticated by: Adele Kenney MD 02/08/2018 8:12 PM Eastern Time ([place] & [place]) On re-evaluation, patient reports improvement of symptoms, reports significant improvement of the rash, denies any dizziness, chest pain or SOB. On further questioning the patient states that he had a blood transfusion the same day he had the hip surgery. reports no history of anemia in the past, denies melena or hematochezia. On exam, patient remains AAOx3, in no acute distress, speaking in full sentences. Lungs clear to auscultation, cardiac RRR, rectal exam : +brown stool, no hemorrhoids, guaic (-), repeat neuro exam shows no focal findings. Stool for occult blood sent. CTA results d/w the patient in great detail. Dressing to his R hip changed by RN. Patient is requesting to eat and was given food, which he tolerated. Based on history, exam and diagnostic results, plan will be for outpatient follow up. Patient instructed to follow-up with pmd and his ortho doctor in 1-2 days without fail. Advised to follow up anemia with pmd without fail. Advised to take medication as prescribed. Return to the emergency room at any time for any new or worsening symptoms. Patient states he fully agrees with and understands discharge instructions. States that he agrees with the plan and disposition. Verbalized and repeated discharge instructions and plan. I have given the patient opportunity to ask any additional questions. Disposition - Clinical Impression Clinical Impression: Allergic reaction, Shortness of breath - POA Present On Arrival: None - Disposition Disposition: Routine/Home Disposition Time: 20:45 Condition: STABLE Additional Instructions: Thank you for letting us take care of you today. You were treated for SOB, allergic reaction. The emergency medical care you received today was directed towards the acute presenting symptoms. If you were prescribed any medication, please fill it and give as directed. It may take several days for your symptoms to resolve. Return to the Emergency Department at any time if symptoms worsen, do not improve, or if any other problems arise. Please contact your [facility] and ortho in 2 days for re-evaluation and follow up. Bring any paperwork you were given at discharge with you along with any medications to your follow up visit. Our treatment cannot replace ongoing medical care by a primary care provider (PCP) outside of the emergency department. Thank you for allowing the [facility] team to be part of your care today. Prescriptions: DiphenhydrAMINE [Benadryl] 25 mg PO TID #20 cap Methylprednisolone [Medrol Dose Pack (21 tabs)] 4 mg PO DAILY #21 mg Instructions: Shortness of Breath (Dyspnea) (DC), Drug Allergy Forms: [employer] (Indonesian) - PA / PERSONAL FITNESS TRAINER / Resident Statement MD/DO has reviewed & agrees with the documentation as recorded.
[2018-02-08 22:45] VITALS: BP 126/79; PULSE 118; RESP 17; TEMP 98.1; O2SAT 97
--- NOTE | 2018-02-09 08:37 | CT ---
Date of service: 02/08/2018 PROCEDURE: CT Chest with contrast (Pulmonary Angiogram) HISTORY: R/O pe COMPARISON: CT angiography of the pulmonary arteries dated 07/25/2016. TECHNIQUE: Axial computed tomography images were obtained of the chest in the pulmonary arterial phase of enhancement. Coronal and sagittal reformatted images were created and reviewed. Intravenous contrast dose: 90 mL Visipaque 320 Radiation dose: Total exam DLP = 335.4 mGy-cm. This CT exam was performed using one or more of the following dose reduction techniques: Automated exposure control, adjustment of the mA and/or kV according to patient size, and/or use of iterative reconstruction technique. FINDINGS: PULMONARY ARTERIES: Unremarkable. No pulmonary embolism. AORTA: No acute findings. No thoracic aortic aneurysm. LUNGS: Centrilobular emphysema with biapical blebs/bullae. No nodule, mass or pulmonary consolidation. PLEURAL SPACES: Unremarkable. No effusion or pneumothorax. HEART: Unremarkable. No cardiomegaly. No significant pericardial effusion. LYMPH NODES: No lymphadenopathy. BONES, CHEST WALL: Unremarkable. No fracture or destructive lesion OTHER FINDINGS: Large hiatal hernia. IMPRESSION: Unremarkable CT pulmonary angiogram. No pulmonary embolus. Stable large hiatal hernia.
--- NOTE | 2018-02-10 17:54 | CARD ---
APPROVED REPORT Date of service: 02/08/2018 EKG Measurement Heart [id number] <Conclusion> Sinus tachycardia Left anterior fascicular block Abnormal ECG
== END 2018-02-08 22:00 | disposition home or self-care (01) ==
LOC: H.ER 16:49
DX: T78.40XA Allergy, unspecified, initial encounter (principal); R06.02 Shortness of breath
CPT/HCPCS: 71045; 71275; 80053; 84484; 85025; 85378; 93005; 96374; 96375; 99283; J1200; J2930; Q9967

== ENCOUNTER 2018-02-10 11:34 | Emergency (ER) | payer MEDICARE ==
[2018-02-10 11:34] VITALS: BMI 25.8
[2018-02-10 12:02] VITALS: TEMP 98.3
--- NOTE | 2018-02-10 12:51 | ED PDOC ---
HPI: Allergic Reaction Time Seen by Provider: 02/10/18 12:21 Chief Complaint (Nursing): Allergic Reaction Chief Complaint (Provider): Allergic Reaction History Per: Patient History/Exam Limitations: no limitations Onset/Duration Of Symptoms: Days (x2) Current Symptoms Are (Timing): Still Present Home/EMS Treatment: None Additional Complaint(s): 57 y/o male presents to the ED complaining of a possible allergic reaction. Patient reports of a rash located on his forearms and his buttocks. Patient reports of taking new medications of Morphine and Eliquis s/p right hip replacement surgery a couple of days ago. Patient also reports was here previously for the same symptoms and states he was given a prescription of Benadryl and a Medrol Dose Pack but did not fill as of yet because rash went away. Of note, patient was written a prescription for tramadol for pain. PMD: None Provided Past Medical History Reviewed: Historical Data, Nursing Documentation, Vital Signs Vital Signs: Last Vital Signs Temp 98.3 F 02/10/18 12:01 Pulse 110 H 02/10/18 12:01 Resp 18 02/10/18 12:01 BP 120/72 02/10/18 12:01 Pulse Ox 98 02/10/18 12:01 - Medical History PMH: Asthma, Bronchitis, CAD, CHF, COPD, Fractures (right foot), Hiatal Hernia, HTN, Hyperlipidemia, Pneumothorax, Schizophrenia (denies) Denies: Chronic Kidney Disease - Surgical History Surgical History: Coronary Stent (x2) - Family History Family History: States: Unknown Family Hx - Immunization History Hx Tetanus Toxoid Vaccination: No Hx Influenza Vaccination: No Hx Pneumococcal Vaccination: No - Home Medications Home Medications: Ambulatory Orders Medication Instructions Recorded Metoprolol Tartrate [Lopressor] 25 mg PO BID 04/25/16 Aspirin [Aspirin Chewable] 81 mg PO DAILY 07/25/16 Clopidogrel [Plavix] 75 mg PO DAILY 07/25/16 Atorvastatin [Lipitor] 40 mg DAILY 09/06/16 Gabapentin [Neurontin] 100 mg HS 09/06/16 Omeprazole [Omeprazole] 20 mg DAILY 09/06/16 Tramadol HCl [Ultram] 50 mg PO BID PRN #14 tablet 09/06/16 Albuterol HFA [Ventolin HFA 90 1 - 2 puff IH Q4H PRN #1 bottle 01/07/17 mcg/actuation (8 g)] predniSONE [Prednisone] 40 mg PO DAILY #8 tab 01/07/17 Ketorolac Tromethamine [Toradol] 10 mg PO SAT #20 tab 02/01/17 Ibuprofen [Motrin Tab] 600 mg PO Q6 PRN #15 tab 03/25/17 DiphenhydrAMINE [Benadryl] 25 mg PO TID #20 cap 02/08/18 Methylprednisolone [Medrol Dose 4 mg PO DAILY #21 mg 02/08/18 Pack (21 tabs)] - Allergies Allergies/Adverse Reactions: Allergies Allergy/AdvReac Type Severity Reaction Status Date / Time No Known Allergies Allergy Verified 02/08/18 16:57 Review of Systems ROS Statement: Except As Marked, All Systems Reviewed And Found Negative Skin: Positive for: Rash Physical Exam - Reviewed Nursing Documentation Reviewed: Yes Vital Signs Reviewed: Yes - Physical Exam Appears: Positive for: No Acute Distress Head Exam: Positive for: ATRAUMATIC Skin: Positive for: Rash (Hives on extensor surface of the right forearm) Eye Exam: Positive for: Normal appearance Neck: Positive for: Normal Cardiovascular/Chest: Negative for: Bradycardia, Tachycardia Respiratory: Negative for: Accessory Muscle Use, Respiratory Distress Extremity: Positive for: Normal ROM Neurologic/Psych: Positive for: Alert, Oriented. Negative for: Motor/Sensory Deficits - ECG O2 Sat by Pulse Oximetry: 98 (RA) Pulse Ox Interpretation: Normal - Progress ED Course And Treament: Time: 1229 Plan: -- Benadryl 50 mg PO -- Patient advised to stop taking Morphine and begin taking Tramadol. Patient also advised to fill prescription purchase and start Medrol Dose Pack. Scribe Attestation: Documented by Janett Thompson, acting as a scribe for Heaven Barrett PA-C. Provider Scribe Attestation: All medical record entries made by the Scribe were at my direction and personally dictated by me. I have reviewed the chart and agree that the record accurately reflects my personal performance of the history, physical exam, medical decision making, and the department course for this patient. I have also personally directed, reviewed, and agree with the discharge instructions and disposition. Disposition - Clinical Impression Clinical Impression: Urticaria - Patient ED Disposition Is Patient to be Admitted: No - Disposition Disposition: Routine/Home Disposition Time: 13:00 Condition: FAIR Additional Instructions: please start medrol dose pack STOP morphine. Take tramadol for pain if needed. Instructions: Kathy (DC) Forms: [employer] (Angolan)
[2018-02-10 13:01] VITALS: BP 129/81; PULSE 91; RESP 16
[2018-02-10 13:02] VITALS: O2SAT 98
== END 2018-02-10 13:01 | disposition home or self-care (01) ==
LOC: H.ER 11:34
DX: L50.0 Allergic urticaria (principal)

== ENCOUNTER 2018-05-08 08:06 | Inpatient (IN) | payer MEDICARE ==
[2018-05-08 08:06] VITALS: BMI 25.8
[2018-05-08] MEDS ORDERED: Sodium Chloride 0.9% 1,000 ML IV STA (08:44)
[2018-05-08] MEDS ORDERED: Albuterol 0.083% Inhal Sol (2.5 mg/3 mL) UD INH ONE (08:47)
--- NOTE | 2018-05-08 08:47 | ED PDOC ---
HPI: Chest Pain Time Seen by Provider: 05/08/18 08:15 Chief Complaint (Nursing): Chest Pain Chief Complaint (Provider): Chest Pain History Per: Patient History/Exam Limitations: no limitations Onset/Duration Of Symptoms: Hrs (x 1) Current Symptoms Are (Timing): Still Present Quality: "Pain" Additional Complaint(s): 57 year old male with a history of COPD, PCP abuse, chronic back pain, HTN, CAD and cardiac stents presents to the ED with chest pain beginning 1 hour prior to arrival. The patient reports he was sitting on a park bench when the pain developed suddenly on the right side of his chest and traveled to the left side of chest. He denies recent illness, vomiting, diarrhea, cough, fever and other complaints. Health And Fitness Professor: Dr. Méndez Past Medical History Reviewed: Historical Data, Nursing Documentation, Vital Signs Vital Signs: Last Vital Signs Temp 98.2 F 05/08/18 08:34 Pulse 136 H 05/08/18 08:34 Resp 16 05/08/18 08:34 BP 130/104 H 05/08/18 08:34 Pulse Ox 100 05/08/18 08:34 - Medical History PMH: Asthma, Bronchitis, CAD, CHF, COPD, Fractures (right foot), Hiatal Hernia, HTN, Hyperlipidemia, Pneumothorax, Schizophrenia (denies) Denies: Chronic Kidney Disease - Surgical History Surgical History: Coronary Stent (x2; placed 1 year ago) Other surgeries: b/l hip replacements - Family History Family History: States: Unknown Family Hx - Social History Current smoker - smoking cessation education provided: Yes (10-15 cigarettes a day) - Immunization History Hx Tetanus Toxoid Vaccination: No Hx Influenza Vaccination: No Hx Pneumococcal Vaccination: No - Home Medications Home Medications: Ambulatory Orders Medication Instructions Recorded RX: Aspirin [Aspirin Chewable] 81 mg PO DAILY 07/25/16 RX: Albuterol HFA [Ventolin HFA 90 2 puff IH Q4H PRN #1 inh 04/29/18 mcg/actuation (8 g)] Apixaban [Eliquis] 2.5 mg PO Q12 05/08/18 Glycopyrrolate/Formoterol Fum 2 puff IH Q12 05/08/18 [Bevespi Aerosphere Inhaler] Metoprolol Succinate XL [Toprol XL] 25 mg PO DAILY 05/08/18 RX: oxyCODONE [oxyCODONE Immediate 15 mg PO Q6 PRN 05/08/18 Release Tab] Rosuvastatin Calcium [Crestor] 10 mg PO DAILY 05/08/18 diltiaZEM [Cardizem] 90 mg PO DAILY 05/08/18 - Allergies Allergies/Adverse Reactions: Allergies Allergy/AdvReac Type Severity Reaction Status Date / Time No Known Allergies Allergy Verified 05/08/18 08:24 MAK Risk Score for UA/NSTEMI - MAK Risk Score Age > 64: NO 3 or more CAD Risk Factors: YES Known CAD (Stenosis greater than 50%): YES Aspirin use in past 7 days: NO Severe Angina: NO EKG ST changes greater than 0.5mm: NO Positive Cardiac Marker: NO MAK Score: 2 Risk %: 8% Wells Criteria for PE - Wells Criteria for Pulmonary Embolism Clinical Signs and Symptoms of DVT: No P.E is #1 Diagnosis, or Equally Likely: No Heart Rate >100: Yes Immobilization at least 3 days;Surgery previous 4 weeks: No Previous, objectively diagnosed PE or DVT: No Hemoptysis: No Malignancy w/treatment within 6 months, or palliative: No Total Score: 1.5 Review of Systems ROS Statement: Except As Marked, All Systems Reviewed And Found Negative Constitutional: Negative for: Fever Cardiovascular: Positive for: Chest Pain Respiratory: Negative for: Cough Gastrointestinal: Negative for: Vomiting, Abdominal Pain, Diarrhea Physical Exam - Reviewed Nursing Documentation Reviewed: Yes Vital Signs Reviewed: Yes - Physical Exam Appears: Positive for: Non-toxic, No Acute Distress Head Exam: Positive for: ATRAUMATIC, NORMAL INSPECTION, NORMOCEPHALIC Skin: Positive for: Normal Color, Warm, Dry Eye Exam: Positive for: EOMI, Normal appearance, PERRL ENT: Positive for: Normal ENT Inspection Neck: Positive for: Normal, Painless ROM, Supple Cardiovascular/Chest: Positive for: Regular Rate, Rhythm Respiratory: Positive for: Normal Breath Sounds. Negative for: Respiratory Distress Gastrointestinal/Abdominal: Positive for: Normal Exam, Soft Extremity: Positive for: Normal ROM (x 4), Pedal Edema (trace bilateral pitting edema in lower legs) Neurologic/Psych: Positive for: Alert, Oriented. Negative for: Motor/Sensory Deficits - Laboratory Results Result Diagrams: 05/08/18 08:45 05/08/18 08:45 - ECG ECG: Positive for: Interpreted By Me, Viewed By Me ECG Rhythm: Positive for: Sinus Tachycardia. Negative for: ST/T Changes (St elevation) Rate: 119 O2 Sat by Pulse Oximetry: 100 (RA) Pulse Ox Interpretation: Normal Medical Decision Making Medical Decision Makin:42 Initial Plan: --CMP --Troponin --CBC --CXR --Albuterol .083% 2.5 mg INH --ASA 325 mg PO --NS IV --Nitroglycerin .4 mg SL --Peak flow pre/post --Influenza AB EKG --Sinus tachycardia at 119; left axis deviation; no ST elevation troponin negative 09:17 CXR FINDINGS: LUNGS: No active pulmonary disease. PLEURA: No significant pleural effusion identified, no pneumothorax apparent. CARDIOVASCULAR: Calcific atherosclerotic changes are seen related to the thoracic aorta. Normal cardiac silhouette. No pulmonary vascular congestion. Hiatal hernia appreciated once again posterior to the heart. OSSEOUS STRUCTURES: No significant abnormalities. VISUALIZED UPPER ABDOMEN: Normal. OTHER FINDINGS: None. IMPRESSION: No interval acute cardiopulmonary disease appreciable. Hiatal hernia reiterated. 11:19 --Influenza Ab is negative. pulse improved a bit. Due to chest pain and shortness of breath, patient will be admitted to the service of Dr. Chip Sharma (pts doctor doesnt come here). consult placed for cardiology busperson. ----- Scribe Attestation: Documented by Ashley Sarmiento acting as a scribe for Emy Mendez MD Provider Scribe Attestation: All medical record entries made by the Scribe were at my direction and personally dictated by me. I have reviewed the chart and agree that the record accurately reflects my personal performance of the history, physical exam, medical decision making, and the department course for this patient. I have also personally directed, reviewed, and agree with the discharge instructions and di sposition. Disposition - Clinical Impression Clinical Impression: Chest pain - Patient ED Disposition Is Patient to be Admitted: Yes - Disposition Disposition Time: 11:00 Condition: STABLE - Pt Status Changed To: Hospital Disposition Of: Observation
[2018-05-08 08:55] LABS: BASO # 0.1 K/uL (0.0-0.2); BASO % 0.9 % (0.0-2.0); EOS # 0.6 K/uL (0.0-0.7); EOS % 5.4 % (0.0-4.0); HEMOGLOBIN 11.7 g/dL (12.0-18.0); LYMPH % 26.4 % (20.0-40.0); MEAN CELL VOLUME 72.3 fl (80.0-94.0); MEAN CORPUSCULAR HEMOGLOBIN 22.7 pg (27.0-31.0); MEAN CORPUSCULAR HGB CONC 31.4 g/dL (33.0-37.0); MEAN PLATELET VOLUME 9.3 fl (7.2-11.7); MONO # 0.7 K/uL (0.0-0.8); MONO % 6.3 % (0.0-10.0); NEUT # 7.1 K/uL (1.8-7.0); NRBC % 0.1 % (0.0-0.0); RBC 5.16 Mil/uL (4.40-5.90); RED CELL DISTRIBUTION WIDTH 17.3 % (11.5-14.5); WHITE BLOOD COUNT 11.5 K/uL (4.8-10.8)
[2018-05-08 09:13] LABS: ALBUMIN 3.9 g/dL (3.5-5.0); ALT/SGPT 24 U/L (21-72); AST/SGOT 31 U/L (17-59); BLOOD UREA NITROGEN 10 mg/dl (9-20); GFR NON-AFRICAN AMERICAN > 60
--- NOTE | 2018-05-08 09:20 | RAD ---
Date of service: 05/08/2018 HISTORY: chest pain COMPARISON: Frontal chest radiograph 02/08/2018. FINDINGS: LUNGS: No active pulmonary disease. PLEURA: No significant pleural effusion identified, no pneumothorax apparent. CARDIOVASCULAR: Calcific atherosclerotic changes are seen related to the thoracic aorta. Normal cardiac silhouette. No pulmonary vascular congestion. Hiatal hernia appreciated once again posterior to the heart. OSSEOUS STRUCTURES: No significant abnormalities. VISUALIZED UPPER ABDOMEN: Normal. OTHER FINDINGS: None. IMPRESSION: No interval acute cardiopulmonary disease appreciable. Hiatal hernia reiterated.
[2018-05-08] MEDS ORDERED: Albuterol HFA 90 mcg/actuation (8 g) IH PRN (14:14)
[2018-05-08 15:14] LABS: OPIATES, UR NEGATIVE (NEGATIVE)
[2018-05-08 15:18] LABS: BARBITURATES, UR NEGATIVE (NEGATIVE); BENZODIAZEPINES, UR NEGATIVE (NEGATIVE); PHENCYCLIDINE, UR NEGATIVE (NEGATIVE)
[2018-05-08 15:19] LABS: SQUAMOUS EPITHIAL < 1 /hpf (0-5); URINE BILIRUBIN NEGATIVE (NEGATIVE); URINE BLOOD NEGATIVE (NEGATIVE); URINE CLARITY CLEAR (Clear); URINE COLOR YELLOW (YELLOW); URINE GLUCOSE (UA) NEG (Normal); URINE LEUKOCYTE ESTERASE NEG Leu/uL (Negative); URINE PROTEIN NEGATIVE (NEGATIVE)
[2018-05-08 15:21] LABS: URINE BACTERIA RARE (<OCC)
--- NOTE | 2018-05-08 15:47 | CP.PCM.CON ---
History of Present Illness - History of Present Illness History of Present Illness: 57 year old male with a history of COPD, PCP abuse, chronic back pain, HTN, CAD and cardiac stents presents to the ED with chest pain beginning 1 hour prior to arrival. The patient reports he was sitting on a park bench when the pain developed suddenly on the right side of his chest and traveled to the left side of chest. He denies recent illness, vomiting, diarrhea, cough, fever and other complaints. Pain is intermittent dull aching no relation to exertion usually comes on at rest has had this pain > 1 week was seen in ER 1 week ago never f/u with PMD Dr Méndez EKG: normal Troponin: neg Past Patient History - Infectious Disease Hx of Infectious Diseases: None - Past Medical History & Family History Past Medical History?: Yes - Past Social History Smoking Status: Current Some Days Smoker - CARDIAC Hx Congestive Heart Failure: Yes Hx Hypertension: Yes - PULMONARY Hx Respiratory Disorders: Yes Hx Asthma: Yes Hx Bronchitis: Yes Hx Chronic Obstructive Pulmonary Disease (COPD): Yes - NEUROLOGICAL Hx Neurological Disorder: No - HEENT Hx HEENT Problems: No - RENAL Hx Chronic Kidney Disease: No - ENDOCRINE/METABOLIC Hx Endocrine Disorders: No - HEMATOLOGICAL/ONCOLOGICAL Hx Blood Disorders: No Hx AIDS: No Hx Human Immunodeficiency Virus (HIV): No - INTEGUMENTARY Hx Dermatological Problems: No - MUSCULOSKELETAL/RHEUMATOLOGICAL Hx Arthritis: Yes Hx Falls: No Hx Fractures: Yes (right foot, right leg,) - GASTROINTESTINAL Hx Gastrointestinal Disorders: Yes - GENITOURINARY/GYNECOLOGICAL Hx Genitourinary Disorders: No - PSYCHIATRIC Hx Schizophrenia: Yes (denies) Hx Substance Use: No - SURGICAL HISTORY Hx Coronary Stent: Yes (x2; placed 1 year ago) - ANESTHESIA Hx Anesthesia: Yes Hx Anesthesia Reactions: No Hx Malignant Hyperthermia: No Has any member of the family had a problem w/ anesthesia?: No Meds Allergies/Adverse Reactions: Allergies Allergy/AdvReac Type Severity Reaction Status Date / Time No Known Allergies Allergy Verified 05/08/18 08:24 - Medications Medications: Current Medications Acetaminophen (Tylenol 325mg Tab) 650 mg PO Q6 PRN PRN Reason: Pain, Mild (1-3) Albuterol (Ventolin Hfa 90 Mcg/Actuation (8 G)) 2 puff IH Q4H PRN PRN Reason: ASTHMA Apixaban (Eliquis) 2.5 mg PO Q12 ARIAN; Protocol Atorvastatin Calcium (Lipitor) 20 mg PO DAILY [facility] Diltiazem HCl (Cardizem) 90 mg PO DAILY [facility] Home Med (Glycopyrrolate/Formoterol Fum [Bevespi Aerosphere Inhaler]) 2 puff IH Q12 [facility] Metoprolol Succinate (Toprol Xl) 25 mg PO DAILY [facility] Physical Exam - Constitutional Appears: Well - Head Exam Head Exam: NORMAL INSPECTION - Respiratory Exam Respiratory Exam: NORMAL BREATHING PATTERN - Cardiovascular Exam Cardiovascular Exam: REGULAR RHYTHM Results - Vital Signs Recent Vital Signs: Last Vital Signs Temp 97.8 F 05/08/18 14:13 Pulse 99 H 05/08/18 14:13 Resp 18 05/08/18 14:13 BP 114/75 05/08/18 14:13 Pulse Ox 98 05/08/18 14:13 - Labs Result Diagrams: 05/08/18 08:45 05/08/18 08:45 Labs: Laboratory Results - last 24 hr 05/08/18 05/08/18 05/08/18 08:45 08:45 08:55 WBC 11.5 H RBC 5.16 Hgb 11.7 L D Hct 37.3 MCV 72.3 L D MCH 22.7 L MCHC 31.4 L RDW 17.3 H Plt Count 331 MPV 9.3 Neut % (Auto) 61.0 Lymph % (Auto) 26.4 [place] % (Auto) 6.3 Eos % (Auto) 5.4 H Baso % (Auto) 0.9 Neut # (Auto) 7.1 H Lymph # (Auto) 3.0 [place] # (Auto) 0.7 Eos # (Auto) 0.6 Baso # (Auto) 0.1 Sodium 143 Potassium 3.9 Chloride 107 Carbon Dioxide 25 Anion Gap 15 BUN 10 Creatinine 0.8 Est GFR ( Amer) > 60 Est GFR (Non-Af Amer) > 60 POC Glucose (mg/dL) Random Glucose 110 Calcium 9.0 Total Bilirubin 0.4 AST 31 ALT 24 Alkaline Phosphatase 117 Troponin I < 0.0120 Total Protein 7.7 Albumin 3.9 Globulin 3.8 Albumin/Globulin Ratio 1.0 Urine Color Urine Clarity Urine pH Ur Specific [place] Urine Protein Urine Glucose (UA) Urine Ketones Urine Blood Urine Nitrate Urine Bilirubin Urine Urobilinogen Ur Leukocyte Esterase Urine RBC (Auto) Urine Microscopic WBC Ur Squamous Epith Cells Urine Bacteria Urine Opiates Screen Urine Methadone Screen Ur Barbiturates Screen Ur Phencyclidine Scrn Ur Amphetamines Screen U Benzodiazepines Scrn U Oth Cocaine Metabols U Cannabinoids Screen Influenza Typ A,B (EIA) Negative for flu a/b 05/08/18 05/08/18 05/08/18 09:09 13:56 13:56 WBC RBC Hgb Hct MCV MCH MCHC RDW Plt Count MPV Neut % (Auto) Lymph % (Auto) [place] % (Auto) Eos % (Auto) Baso % (Auto) Neut # (Auto) Lymph # (Auto) [place] # (Auto) Eos # (Auto) Baso # (Auto) Sodium Potassium Chloride Carbon Dioxide Anion Gap BUN Creatinine Est GFR ( Amer) Est GFR (Non-Af Amer) POC Glucose (mg/dL) 111 H Random Glucose Calcium Total Bilirubin AST ALT Alkaline Phosphatase Troponin I Total Protein Albumin Globulin Albumin/Globulin Ratio Urine Color Yellow Urine Clarity Clear Urine pH 5.0 Ur Specific [place] 1.013 Urine Protein Negative Urine Glucose (UA) Neg Urine Ketones Negative Urine Blood Negative Urine Nitrate Negative Urine Bilirubin Negative Urine Urobilinogen 2.0 Ur Leukocyte Esterase Neg Urine RBC (Auto) < 1 Urine Microscopic WBC < 1 Ur Squamous Epith Cells < 1 Urine Bacteria Rare Urine Opiates Screen Negative Urine Methadone Screen Negative Ur Barbiturates Screen Negative Ur Phencyclidine Scrn Negative Ur Amphetamines Screen Negative U Benzodiazepines Scrn Negative U Oth Cocaine Metabols Negative U Cannabinoids Screen Negative Influenza Typ A,B (EIA) Assessment & Plan (1) Atypical chest pain Assessment and Plan: Pain appears to be non cardiac in origin 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
[2018-05-08] MEDS: Metoprolol Succinate 25 mg XL Tab PO SCH (16:20)
--- NOTE | 2018-05-08 19:09 | CARD ---
APPROVED REPORT Date of service: 05/08/2018 EXAM: Two-dimensional and M-mode echocardiogram with Doppler and color Doppler. Other Information Quality : GoodRhythm : NSR INDICATION Chest Pain 2D DIMENSIONS IVSd0.95 (0.7-1.1cm)LVDd4.08 (3.9-5.9cm) LVOT Diameter2.17 (1.8-2.4cm)PWd0.87 (0.7-1.1cm) IVSs1.49 (0.8-1.2cm)LVDs2.08 (2.5-4.0cm) FS (%) 49.1 %PWs1.31 (0.8-1.2cm) M-Mode DIMENSIONS Left Atrium (MM)3.38 (2.5-4.0cm)IVSd1.00 (0.7-1.1cm) Aortic Root3.56 (2.2-3.7cm)LVDd4.79 (4.0-5.6cm) Aortic Cusp Exc.2.24 (1.5-2.0cm)PWd0.94 (0.7-1.1cm) IVSs1.29 cmFS (%) 37 % LVDs3.03 (2.0-3.8cm)PWs1.06 cm Aortic Valve AoV Peak Voxjkycn056.8cm/sAoV VTI21.1cmAO Peak GR.6mmHg LVOT Peak Pmsnjvrt41.6cm/sLVOT VTI19.11cmAO Mean GR.3mmHg JUAN A (VMAX)1.34zx0ESP (VTI)1.82cm2 Mitral Valve MV E Kinvdmww58.0cm/sMV DECEL [id number] A Jfekhayo62.8cm/s MV MDN22ooY/A ratio0.9MVA (PHT)3.55cm2 TDI Lateral E' Peak V11.90cm/sMedial E' Peak V7.82cm/sE/Lateral E'5.6 E/Medial E'8.6 Pulmonary Valve PV Peak Spltpyvb04.2cm/s LEFT VENTRICLE The left ventricle is normal size. There is normal left ventricular wall thickness. The left ventricular systolic function is normal. The estimated ejection fraction is 60-65% No regional wall motion abnormalities noted.. Transmitral Doppler flow pattern is Grade I-abnormal relaxation pattern. No left ventricle thrombus noted on this study. There is no ventricular septal defect visualized. There is no left ventricular aneurysm. There is no mass noted in the left ventricle. RIGHT VENTRICLE The right ventricle is normal size. There is normal right ventricular wall thickness. The right ventricular systolic function is normal. ATRIA The left atrium is mildly dilated. The right atrium size is normal. The interatrial septum is intact with no evidence for an atrial septal defect. AORTIC VALVE The aortic valve is normal in structure. No aortic regurgitation is present. There is no aortic valvular stenosis. There is no aortic valvular vegetation. MITRAL VALVE The mitral valve is normal in structure. There is no evidence of mitral valve prolapse. There is no mitral valve stenosis. There is no mitral valve regurgitation noted. TRICUSPID VALVE The tricuspid valve is normal in structure. There is trace tricuspid valve regurgitation noted. There is no tricuspid valve prolapse or vegetation. There is no tricuspid valve stenosis. PULMONIC VALVE The pulmonary valve is normal in structure. There is no pulmonic valvular regurgitation. There is no pulmonic valvular stenosis. GREAT VESSELS The aortic root is normal in size. The ascending aorta is normal in size. The pulmonary artery is normal. The IVC is normal in size and collapses >50% with inspiration. PERICARDIAL EFFUSION There is no pericardial effusion. There is no pleural effusion. <Conclusion> The estimated ejection fraction is 60-65% Transmitral Doppler flow pattern is Grade I-abnormal relaxation pattern. The left atrium is mildly dilated. There is trace tricuspid valve regurgitation noted.
[2018-05-08] MEDS ORDERED: Promethazine/Cod 6.25mg-10mg/5ml Syr UD PO PRN (20:06)
--- NOTE | 2018-05-08 20:57 | CP.PCM.HP ---
History of Present Illness - History of Present Illness History of Present Illness: CC: Chest pain. 57 y/o M, with PMHx : COPD, Emphysema, Hx Pneumothorax, CHF, HTN, Cardiac Stent x2, PCP abuse, came to ER [facility] on 05/07/18 to be evaluated for chest pain that began for one week [employer], but suddenly increased while he was sitting in park bench. Described as CP L side, there after in his R side, intermittent, dull, aching, moderate intensity 5:10 with no relief, associated to SOB, dry cough, non bloody. Worsening symptoms: Edema BLE, chronic back pain increased when coughing, Sinus Tachycardiac on EKG in the ER. Aggravated factor: Pt did not f/u with PMD after his last visit to ED [facility] on 04/29/18 for same symptoms. Pt denied: Syncope, LOC, dizziness, headache, abdominal pain, n/v/d, urinary sy mptoms, sick contact. Echo: LVEF: 60-65% CXR: No cardiopulmonary disease. Hiatus Hernia reiterated. Present on Admission - Present on Admission Any Indicators Present on Admission: No Review of Systems - Constitutional Constitutional: Other (negative) - EENT Eyes: Other (negative) Ears: Other (negative) Nose/Mouth/Throat: Other (negative) - Cardiovascular Cardiovascular: Leg Edema, Rapid Heart Rate - Respiratory Respiratory: Cough, Dyspnea - Gastrointestinal Gastrointestinal: Other (negative) - Genitourinary Genitourinary: Other (negative) - Musculoskeletal Musculoskeletal: Arthralgias, Back Pain - Integumentary Integumentary: Other (negative) - Neurological Neurological: Other (negative) - Psychiatric Psychiatric: Other (negative) - Endocrine Endocrine: Other (negtive) - Hematologic/Lymphatic Hematologic: Other (negative) Past Patient History - Infectious Disease Hx of Infectious Diseases: None - Past Medical History & Family History Past Medical History?: Yes Pertinent Family History: Unknown - Past Social History Smoking Status: Current Some Days Smoker Alcohol: None Drugs: Denies Home Situation {Lives}: Alone - CARDIAC Hx Cardiac Disorders: Yes Hx Congestive Heart Failure: Yes Hx Hypertension: Yes - PULMONARY Hx Respiratory Disorders: Yes Hx Asthma: Yes Hx Bronchitis: Yes Hx Chronic Obstructive Pulmonary Disease (COPD): Yes Hx Emphysema: Yes - NEUROLOGICAL Hx Neurological Disorder: No - HEENT Hx HEENT Problems: No - RENAL Hx Chronic Kidney Disease: No - ENDOCRINE/METABOLIC Hx Endocrine Disorders: No - HEMATOLOGICAL/ONCOLOGICAL Hx Blood Disorders: No Hx AIDS: No Hx Human Immunodeficiency Virus (HIV): No - INTEGUMENTARY Hx Dermatological Problems: No - MUSCULOSKELETAL/RHEUMATOLOGICAL Hx Musculoskeletal Disorders: Yes Hx Arthritis: Yes Hx Falls: No Hx Fractures: Yes (right foot, right leg,) - GASTROINTESTINAL Hx Gastrointestinal Disorders: Yes - GENITOURINARY/GYNECOLOGICAL Hx Genitourinary Disorders: No - PSYCHIATRIC Hx Bipolar Disorder: Yes Hx Schizophrenia: Yes (denies) Hx Substance Use: No - SURGICAL HISTORY Hx Surgeries: Yes Hx Coronary Stent: Yes (x2; placed 1 year ago) - ANESTHESIA Hx Anesthesia: Yes Hx Anesthesia Reactions: No Hx Malignant Hyperthermia: No Has any member of the family had a problem w/ anesthesia?: No Meds Allergies/Adverse Reactions: Allergies Allergy/AdvReac Type Severity Reaction Status Date / Time No Known Allergies Allergy Verified 05/08/18 08:24 Physical Exam - Constitutional Appears: No Acute Distress - Head Exam Head Exam: NORMAL INSPECTION - Eye Exam Eye Exam: PERRL - ENT Exam ENT Exam: Normal Exam - Neck Exam Neck exam: Positive for: Normal Inspection - Respiratory Exam Respiratory Exam: NORMAL BREATHING PATTERN - Cardiovascular Exam Cardiovascular Exam: Tachycardia - GI/Abdominal Exam GI & Abdominal Exam: Normal Bowel Sounds, Soft - Extremities Exam Additional comments: Edema BLE - Back Exam Back exam: NORMAL INSPECTION - Neurological Exam Neurological exam: Alert, Oriented x3 Additional comments: No motor/sensory deficit. - Psychiatric Exam Psychiatric exam: Normal Mood - Skin Skin Exam: Warm Results - Vital Signs Recent Vital Signs: Last Vital Signs Temp 98.3 F 05/08/18 19:48 Pulse 94 H 05/08/18 19:48 Resp 16 05/08/18 19:48 BP 110/59 L 05/08/18 19:48 Pulse Ox 96 05/08/18 19:48 reviewed Huang - Labs Result Diagrams: 05/08/18 08:45 05/08/18 08:45 Labs: Laboratory Results - last 24 hr 05/08/18 05/08/18 05/08/18 08:45 08:45 08:55 WBC 11.5 H RBC 5.16 Hgb 11.7 L D Hct 37.3 MCV 72.3 L D MCH 22.7 L MCHC 31.4 L RDW 17.3 H Plt Count 331 MPV 9.3 Neut % (Auto) 61.0 Lymph % (Auto) 26.4 [place] % (Auto) 6.3 Eos % (Auto) 5.4 H Baso % (Auto) 0.9 Neut # (Auto) 7.1 H Lymph # (Auto) 3.0 [place] # (Auto) 0.7 Eos # (Auto) 0.6 Baso # (Auto) 0.1 Sodium 143 Potassium 3.9 Chloride 107 Carbon Dioxide 25 Anion Gap 15 BUN 10 Creatinine 0.8 Est GFR ( Amer) > 60 Est GFR (Non-Af Amer) > 60 POC Glucose (mg/dL) Random Glucose 110 Calcium 9.0 Total Bilirubin 0.4 AST 31 ALT 24 Alkaline Phosphatase 117 Troponin I < 0.0120 Total Protein 7.7 Albumin 3.9 Globulin 3.8 Albumin/Globulin Ratio 1.0 Urine Color Urine Clarity Urine pH Ur Specific [place] Urine Protein Urine Glucose (UA) Urine Ketones Urine Blood Urine Nitrate Urine Bilirubin Urine Urobilinogen Ur Leukocyte Esterase Urine RBC (Auto) Urine Microscopic WBC Ur Squamous Epith Cells Urine Bacteria Urine Opiates Screen Urine Methadone Screen Ur Barbiturates Screen Ur Phencyclidine Scrn Ur Amphetamines Screen U Benzodiazepines Scrn U Oth Cocaine Metabols U Cannabinoids Screen Influenza Typ A,B (EIA) Negative for flu a/b 05/08/18 05/08/18 05/08/18 09:09 13:56 13:56 WBC RBC Hgb Hct MCV MCH MCHC RDW Plt Count MPV Neut % (Auto) Lymph % (Auto) [place] % (Auto) Eos % (Auto) Baso % (Auto) Neut # (Auto) Lymph # (Auto) [place] # (Auto) Eos # (Auto) Baso # (Auto) Sodium Potassium Chloride Carbon Dioxide Anion Gap BUN Creatinine Est GFR ( Amer) Est GFR (Non-Af Amer) POC Glucose (mg/dL) 111 H Random Glucose Calcium Total Bilirubin AST ALT Alkaline Phosphatase Troponin I Total Protein Albumin Globulin Albumin/Globulin Ratio Urine Color Yellow Urine Clarity Clear Urine pH 5.0 Ur Specific [place] 1.013 Urine Protein Negative Urine Glucose (UA) Neg Urine Ketones Negative Urine Blood Negative Urine Nitrate Negative Urine Bilirubin Negative Urine Urobilinogen 2.0 Ur Leukocyte Esterase Neg Urine RBC (Auto) < 1 Urine Microscopic WBC < 1 Ur Squamous Epith Cells < 1 Urine Bacteria Rare Urine Opiates Screen Negative Urine Methadone Screen Negative Ur Barbiturates Screen Negative Ur Phencyclidine Scrn Negative Ur Amphetamines Screen Negative U Benzodiazepines Scrn Negative U Oth Cocaine Metabols Negative U Cannabinoids Screen Negative Influenza Typ A,B (EIA) 05/08/18 15:24 WBC RBC Hgb Hct MCV MCH MCHC RDW Plt Count MPV Neut % (Auto) Lymph % (Auto) [place] % (Auto) Eos % (Auto) Baso % (Auto) Neut # (Auto) Lymph # (Auto) [place] # (Auto) Eos # (Auto) Baso # (Auto) Sodium Potassium Chloride Carbon Dioxide Anion Gap BUN Creatinine Est GFR ( Amer) Est GFR (Non-Af Amer) POC Glucose (mg/dL) Random Glucose Calcium Total Bilirubin AST ALT Alkaline Phosphatase Troponin I < 0.0120 Total Protein Albumin Globulin Albumin/Globulin Ratio Urine Color Urine Clarity Urine pH Ur Specific [place] Urine Protein Urine Glucose (UA) Urine Ketones Urine Blood Urine Nitrate Urine Bilirubin Urine Urobilinogen Ur Leukocyte Esterase Urine RBC (Auto) Urine Microscopic WBC Ur Squamous Epith Cells Urine Bacteria Urine Opiates Screen Urine Methadone Screen Ur Barbiturates Screen Ur Phencyclidine Scrn Ur Amphetamines Screen U Benzodiazepines Scrn U Oth Cocaine Metabols U Cannabinoids Screen Influenza Typ A,B (EIA) reviewed J.P. - Impressions Impression: Echo: Reviewed J.P. Assessment & Plan (1) COPD exacerbation Status: Acute Priority: High (2) Atypical chest pain Status: Acute Priority: High (3) HTN (hypertension) Status: Acute Priority: High (4) S/P coronary artery stent placement Status: Chronic Priority: High (5) Hyperlipidemia Status: Chronic Priority: Medium - Assessment and Plan (Free Text) Plan: Continue Zthromax, Xopenex, Ventolin, Phenergan with Co, Cardizen, Toprol XL, Eliquis, and rest of Tx, Cardiology consult appreciated. - Date & Time Date: 05/08/18 Time: 19:00
[2018-05-08] MEDS ORDERED: Promethazine/Cod 6.25mg-10mg/5ml Syr UD PO SCH (21:00)
[2018-05-08] MEDS ORDERED: GLYCOPYRROLATE IH SCH (21:00)
[2018-05-08] MEDS ORDERED: FORMOTEROL FUM IH SCH (21:00)
[2018-05-08] MEDS: Promethazine/Cod 6.25mg-10mg/5ml Syr UD PO PRN (21:16)
[2018-05-08] MEDS ORDERED: Levalbuterol 0.63 MG/3 ML Inhal Soln UD IH SCH (22:00)
[2018-05-09] MEDS: Levalbuterol 0.63 MG/3 ML Inhal Soln UD IH SCH ×3 (07:43→19:34)
[2018-05-09] MEDS: Azithromycin 500 MG in Sodium Chloride 0.9% 250 ML IVPB SCH (09:00)
[2018-05-09] MEDS: Pantoprazole 40 mg EC Tab PO SCH (09:00)
[2018-05-09] MEDS: Metoprolol Succinate 25 mg XL Tab PO SCH (09:00)
[2018-05-09] MEDS ORDERED: methylPREDNISolone 40 MG in Sodium Chloride 0.9% 50 ML IVPB SCH (17:00)
--- NOTE | 2018-05-09 17:12 | CP.PCM.PN ---
Subjective - Date & Time of Evaluation Date of Evaluation: 05/09/18 Time of Evaluation: 11:20 - Subjective Subjective: F/U COPD Exacerbation cough, chest congestion Objective - Vital Signs/Intake and Output Vital Signs (last 24 hours): Temp Pulse Resp BP Pulse Ox 97.6 F 81 18 110/61 97 05/09/18 16:14 05/09/18 16:14 05/09/18 16:14 05/09/18 16:14 05/09/18 16:14 - Medications Medications: Current Medications Acetaminophen (Tylenol 325mg Tab) 650 mg PO Q6 PRN PRN Reason: Pain, Mild (1-3) Albuterol (Ventolin Hfa 90 Mcg/Actuation (8 G)) 2 puff IH Q4H PRN PRN Reason: ASTHMA Apixaban (Eliquis) 2.5 mg PO Q12 [facility]; Protocol Last Admin: 05/09/18 09:00 Dose: 2.5 mg Atorvastatin Calcium (Lipitor) 20 mg PO DAILY [facility] Last Admin: 05/09/18 09:00 Dose: 20 mg Diltiazem HCl (Cardizem) 90 mg PO DAILY [facility] Last Admin: 05/09/18 09:00 Dose: 90 mg Home Med (Glycopyrrolate/Formoterol Fum [Bevespi Aerosphere Inhaler]) 2 puff IH Q12 [facility] Azithromycin 500 mg/ Sodium (Chloride) 250 mls @ 250 mls/hr IVPB DAILY [facility]; Protocol Last Admin: 05/09/18 09:00 Dose: 250 mls/hr Levalbuterol HCl (Xopenex) 0.63 mg IH RQ6 [facility] Last Admin: 05/09/18 13:25 Dose: 0.63 mg Methylprednisolone (Solu-Medrol) 40 mg IVP Q8 [facility] Metoprolol Succinate (Toprol Xl) 25 mg PO DAILY [facility]AN Last Admin: 05/09/18 09:00 Dose: 25 mg Pantoprazole Sodium (Protonix Ec Tab) 40 mg PO DAILY [facility] Last Admin: 05/09/18 09:00 Dose: 40 mg Promethazine HCl/Codeine (Phenergan/Codeine Oral Syrup) 5 ml PO Q4 PRN PRN Reason: Cough Last Admin: 05/08/18 21:16 Dose: 5 ml - Labs Labs: 05/08/18 08:45 05/08/18 08:45 - Constitutional Appears: No Acute Distress - Head Exam Head Exam: NORMAL INSPECTION - Eye Exam Eye Exam: PERRL - ENT Exam ENT Exam: Normal Exam - Neck Exam Neck Exam: Normal Inspection - Respiratory Exam Respiratory Exam: Rhonchi, Wheezes - Cardiovascular Exam Cardiovascular Exam: REGULAR RHYTHM - GI/Abdominal Exam GI & Abdominal Exam: Soft, Normal Bowel Sounds - Extremities Exam Additional comments: Edema BLE - Back Exam Back Exam: NORMAL INSPECTION - Neurological Exam Neurological Exam: Alert, Oriented x3. absent: Motor Sensory Deficit - Psychiatric Exam Psychiatric exam: Normal Mood - Skin Skin Exam: Warm Assessment and Plan (1) COPD exacerbation Status: Acute (2) Atypical chest pain Status: Acute (3) HTN (hypertension) Status: Acute (4) S/P coronary artery stent placement Status: Chronic (5) Hyperlipidemia Status: Chronic - Assessment and Plan (Free Text) Plan: continue Xopenex , Atrovent, Solu Medrol, Zithromax and rest of treatment
--- NOTE | 2018-05-09 17:14 | CP.PCM.PN ---
Objective - Vital Signs/Intake and Output Vital Signs (last 24 hours): Temp Pulse Resp BP Pulse Ox 97.6 F 81 18 110/61 97 05/09/18 16:14 05/09/18 16:14 05/09/18 16:14 05/09/18 16:14 05/09/18 16:14 - Medications Medications: Current Medications Acetaminophen (Tylenol 325mg Tab) 650 mg PO Q6 PRN PRN Reason: Pain, Mild (1-3) Albuterol (Ventolin Hfa 90 Mcg/Actuation (8 G)) 2 puff IH Q4H PRN PRN Reason: ASTHMA Apixaban (Eliquis) 2.5 mg PO Q12 [facility]; Protocol Last Admin: 05/09/18 09:00 Dose: 2.5 mg Atorvastatin Calcium (Lipitor) 20 mg PO DAILY [facility] Last Admin: 05/09/18 09:00 Dose: 20 mg Diltiazem HCl (Cardizem) 90 mg PO DAILY ARIAN Last Admin: 05/09/18 09:00 Dose: 90 mg Home Med (Glycopyrrolate/Formoterol Fum [Bevespi Aerosphere Inhaler]) 2 puff IH Q12 [facility] Azithromycin 500 mg/ Sodium (Chloride) 250 mls @ 250 mls/hr IVPB DAILY [facility]; Protocol Last Admin: 05/09/18 09:00 Dose: 250 mls/hr Levalbuterol HCl (Xopenex) 0.63 mg IH RQ6 [facility] Last Admin: 05/09/18 13:25 Dose: 0.63 mg Methylprednisolone (Solu-Medrol) 40 mg IVP Q8 [facility] Metoprolol Succinate (Toprol Xl) 25 mg PO DAILY [facility] Last Admin: 05/09/18 09:00 Dose: 25 mg Pantoprazole Sodium (Protonix Ec Tab) 40 mg PO DAILY [facility] Last Admin: 05/09/18 09:00 Dose: 40 mg Promethazine HCl/Codeine (Phenergan/Codeine Oral Syrup) 5 ml PO Q4 PRN PRN Reason: Cough Last Admin: 05/08/18 21:16 Dose: 5 ml - Labs Labs: 05/08/18 08:45 05/08/18 08:45 Assessment and Plan (1) COPD exacerbation Status: Acute (2) Atypical chest pain Status: Acute (3) HTN (hypertension) Status: Acute (4) S/P coronary artery stent placement Status: Chronic (5) Hyperlipidemia Status: Chronic
[2018-05-09] MEDS: Promethazine/Cod 6.25mg-10mg/5ml Syr UD PO PRN ×2 (17:32→21:16)
[2018-05-09] MEDS: MethylPREDNISolone 40 mg Vial IVP SCH (17:32)
[2018-05-10] MEDS: MethylPREDNISolone 40 mg Vial IVP SCH ×3 (00:45→17:06)
[2018-05-10] MEDS: Promethazine/Cod 6.25mg-10mg/5ml Syr UD PO PRN ×2 (00:45→21:37)
[2018-05-10] MEDS: Levalbuterol 0.63 MG/3 ML Inhal Soln UD IH SCH ×4 (02:48→19:32)
[2018-05-10] MEDS: Pantoprazole 40 mg EC Tab PO SCH (10:49)
[2018-05-10] MEDS: Metoprolol Succinate 25 mg XL Tab PO SCH (10:50)
[2018-05-10] MEDS: Azithromycin 500 MG in Sodium Chloride 0.9% 250 ML IVPB SCH (10:50)
--- NOTE | 2018-05-10 17:30 | CP.PCM.PN ---
Subjective - Date & Time of Evaluation Date of Evaluation: 05/10/18 - Subjective Subjective: F/U COPD Exacerbation. Pt awake, chest congestion, difficulty to bring up cough Objective - Vital Signs/Intake and Output Vital Signs (last 24 hours): Temp Pulse Resp BP Pulse Ox 98 F 106 H 20 109/62 94 L 05/10/18 15:47 05/10/18 15:47 05/10/18 15:47 05/10/18 15:47 05/10/18 15:47 - Medications Medications: Current Medications Acetaminophen (Tylenol 325mg Tab) 650 mg PO Q6 PRN PRN Reason: Pain, Mild (1-3) Albuterol (Ventolin Hfa 90 Mcg/Actuation (8 G)) 2 puff IH Q4H PRN PRN Reason: ASTHMA Apixaban (Eliquis) 2.5 mg PO Q12 [facility]; Protocol Last Admin: 05/10/18 10:48 Dose: 2.5 mg Atorvastatin Calcium (Lipitor) 20 mg PO DAILY ARIAN Last Admin: 05/10/18 10:48 Dose: 20 mg Diltiazem HCl (Cardizem) 90 mg PO DAILY [facility] Last Admin: 05/10/18 10:48 Dose: 90 mg Home Med (Glycopyrrolate/Formoterol Fum [Bevespi Aerosphere Inhaler]) 2 puff IH Q12 [facility] Azithromycin 500 mg/ Sodium (Chloride) 250 mls @ 250 mls/hr IVPB DAILY [facility]; Protocol Last Admin: 05/10/18 10:50 Dose: 250 mls/hr Levalbuterol HCl (Xopenex) 0.63 mg IH RQ6 [facility] Last Admin: 05/10/18 13:27 Dose: 0.63 mg Methylprednisolone (Solu-Medrol) 40 mg IVP Q8 [facility] Last Admin: 05/10/18 17:06 Dose: 40 mg Metoprolol Succinate (Toprol Xl) 25 mg PO DAILY [facility] Last Admin: 05/10/18 10:50 Dose: 25 mg Pantoprazole Sodium (Protonix Ec Tab) 40 mg PO DAILY [facility] Last Admin: 05/10/18 10:49 Dose: 40 mg Promethazine HCl/Codeine (Phenergan/Codeine Oral Syrup) 5 ml PO Q4 PRN PRN Reason: Cough Last Admin: 05/10/18 00:45 Dose: 5 ml - Labs Labs: 05/08/18 08:45 05/08/18 08:45 - Constitutional Appears: No Acute Distress - Head Exam Head Exam: NORMAL INSPECTION - Eye Exam Eye Exam: PERRL - ENT Exam ENT Exam: Normal Exam - Neck Exam Neck Exam: Normal Inspection - Respiratory Exam Respiratory Exam: Decreased Breath Sounds (at bases), Rhonchi (few) - Cardiovascular Exam Cardiovascular Exam: REGULAR RHYTHM - GI/Abdominal Exam GI & Abdominal Exam: Soft, Normal Bowel Sounds - Extremities Exam Additional comments: Edema BLE - Back Exam Back Exam: NORMAL INSPECTION - Neurological Exam Neurological Exam: Alert, Oriented x3. absent: Motor Sensory Deficit - Psychiatric Exam Psychiatric exam: Normal Mood - Skin Skin Exam: Warm Assessment and Plan (1) COPD exacerbation Status: Acute (2) Atypical chest pain Status: Acute (3) HTN (hypertension) Status: Acute (4) S/P coronary artery stent placement Status: Chronic (5) Hyperlipidemia Status: Chronic - Assessment and Plan (Free Text) Plan: Continue Zithromax, Solu-Medrol, Phenergan with Co, Xopenex and rest of Tx.
[2018-05-11] MEDS: guaiFENesin-DM 600-30 mg ER Tab PO SCH ×3 (00:21→18:12)
[2018-05-11] MEDS: MethylPREDNISolone 40 mg Vial IVP SCH ×3 (00:25→18:12)
[2018-05-11] MEDS: Levalbuterol 0.63 MG/3 ML Inhal Soln UD IH SCH ×4 (01:03→19:37)
[2018-05-11] MEDS ORDERED: Acetylcysteine 10% 30 ML IH SCH (08:00)
[2018-05-11] MEDS: Acetylcysteine 10% 4 ML IH SCH ×2 (08:04→19:38)
[2018-05-11] MEDS: Pantoprazole 40 mg EC Tab PO SCH (08:37)
[2018-05-11] MEDS: Metoprolol Succinate 25 mg XL Tab PO SCH (08:40)
[2018-05-11] MEDS: Azithromycin 500 MG in Sodium Chloride 0.9% 250 ML IVPB SCH (08:41)
--- NOTE | 2018-05-11 16:05 | CP.PCM.PN ---
Subjective - Date & Time of Evaluation Date of Evaluation: 05/11/18 - Subjective Subjective: F/U COPD Ex. Cough, difficulty to bring up phlegms. Objective - Vital Signs/Intake and Output Vital Signs (last 24 hours): Temp Pulse Resp BP Pulse Ox 98.1 F 93 H 20 116/72 95 05/11/18 13:00 05/11/18 13:00 05/11/18 13:00 05/11/18 13:00 05/11/18 13:00 - Medications Medications: Current Medications Acetaminophen (Tylenol 325mg Tab) 650 mg PO Q6 PRN PRN Reason: Pain, Mild (1-3) Acetylcysteine (Mucomyst 10% 4ml) 2 ml IH RBID [facility] Last Admin: 05/11/18 08:04 Dose: 2 ml Albuterol (Ventolin Hfa 90 Mcg/Actuation (8 G)) 2 puff IH Q4H PRN PRN Reason: ASTHMA Apixaban (Eliquis) 2.5 mg PO Q12 [facility]; Protocol Last Admin: 05/11/18 08:36 Dose: 2.5 mg Atorvastatin Calcium (Lipitor) 20 mg PO DAILY [facility] Last Admin: 05/11/18 08:36 Dose: 20 mg Diltiazem HCl (Cardizem) 90 mg PO DAILY [facility] Last Admin: 05/11/18 08:46 Dose: 90 mg Guaifenesin/Dextromethorphan (Mucinex-Dm 600-30 Mg) 1 tab PO BID [facility] Last Admin: 05/11/18 08:37 Dose: 1 tab Home Med (Glycopyrrolate/Formoterol Fum [Bevespi Aerosphere Inhaler]) 2 puff IH Q12 [facility] Azithromycin 500 mg/ Sodium (Chloride) 250 mls @ 250 mls/hr IVPB DAILY [facility]; Protocol Last Admin: 05/11/18 08:41 Dose: 250 mls/hr Levalbuterol HCl (Xopenex) 0.63 mg IH RQ6 [facility] Last Admin: 05/11/18 13:41 Dose: 0.63 mg Methylprednisolone (Solu-Medrol) 40 mg IVP Q8 [facility] Last Admin: 05/11/18 08:37 Dose: 40 mg Metoprolol Succinate (Toprol Xl) 25 mg PO DAILY [facility] Last Admin: 05/11/18 08:40 Dose: 25 mg Pantoprazole Sodium (Protonix Ec Tab) 40 mg PO DAILY [facility] Last Admin: 05/11/18 08:37 Dose: 40 mg Promethazine HCl/Codeine (Phenergan/Codeine Oral Syrup) 5 ml PO Q4 PRN PRN Reason: Cough Last Admin: 05/10/18 21:37 Dose: 5 ml - Labs Labs: 05/08/18 08:45 05/08/18 08:45 - Constitutional Appears: No Acute Distress - Head Exam Head Exam: NORMAL INSPECTION - Eye Exam Eye Exam: PERRL - ENT Exam ENT Exam: Normal Exam - Neck Exam Neck Exam: Normal Inspection - Respiratory Exam Respiratory Exam: Decreased Breath Sounds (at bases), Rhonchi (at bases) - Cardiovascular Exam Cardiovascular Exam: REGULAR RHYTHM - GI/Abdominal Exam GI & Abdominal Exam: Soft, Normal Bowel Sounds - Extremities Exam Additional comments: Edema BLE - Back Exam Back Exam: NORMAL INSPECTION - Neurological Exam Neurological Exam: Alert, Oriented x3. absent: Motor Sensory Deficit - Psychiatric Exam Psychiatric exam: Normal Mood - Skin Skin Exam: Warm Assessment and Plan (1) COPD exacerbation Status: Acute (2) Atypical chest pain Status: Acute (3) HTN (hypertension) Status: Acute (4) S/P coronary artery stent placement Status: Chronic (5) Hyperlipidemia Status: Chronic - Assessment and Plan (Free Text) Plan: COPD Ex. improved, continue Solu-Medrol, Mucomyst, Xopenex and rest of Tx.
[2018-05-11] MEDS: Promethazine/Cod 6.25mg-10mg/5ml Syr UD PO PRN (21:06)
[2018-05-12] MEDS: Levalbuterol 0.63 MG/3 ML Inhal Soln UD IH SCH ×3 (00:59→13:55)
[2018-05-12] MEDS: MethylPREDNISolone 40 mg Vial IVP SCH ×2 (01:00→08:57)
[2018-05-12] MEDS: Acetylcysteine 10% 4 ML IH SCH (07:56)
[2018-05-12 08:29] VITALS: RESP 20; TEMP 98
[2018-05-12] MEDS: Pantoprazole 40 mg EC Tab PO SCH (08:57)
[2018-05-12] MEDS: guaiFENesin-DM 600-30 mg ER Tab PO SCH (08:57)
[2018-05-12] MEDS: Metoprolol Succinate 25 mg XL Tab PO SCH (08:58)
[2018-05-12] MEDS: Azithromycin 500 MG in Sodium Chloride 0.9% 250 ML IVPB SCH (08:59)
[2018-05-12 10:44] LABS: HEMOGLOBIN 9.9 g/dL (12.0-18.0); MEAN CELL VOLUME 72.1 fl (80.0-94.0); MEAN CORPUSCULAR HEMOGLOBIN 22.6 pg (27.0-31.0); MEAN CORPUSCULAR HGB CONC 31.4 g/dL (33.0-37.0); RBC 4.38 Mil/uL (4.40-5.90); RED CELL DISTRIBUTION WIDTH 17.3 % (11.5-14.5); WHITE BLOOD COUNT 19.9 K/uL (4.8-10.8)
[2018-05-12 11:55] LABS: BLOOD UREA NITROGEN 22 mg/dl (9-20); CALCIUM 8.4 mg/dL (8.4-10.2); GFR NON-AFRICAN AMERICAN > 60
[2018-05-12 13:00] VITALS: BP 102/68; PULSE 89; O2SAT 98
--- NOTE | 2018-05-12 15:29 | CP.PCM.PN ---
Subjective - Date & Time of Evaluation Date of Evaluation: 05/12/18 - Subjective Subjective: F/U COPD Exacerbation. Objective - Vital Signs/Intake and Output Vital Signs (last 24 hours): Temp Pulse Resp BP Pulse Ox 98 F 89 20 102/68 98 05/12/18 12:59 05/12/18 12:59 05/12/18 12:59 05/12/18 12:59 05/12/18 12:59 - Labs Labs: 05/12/18 10:38 05/12/18 10:38 - Constitutional Appears: No Acute Distress - Head Exam Head Exam: NORMAL INSPECTION - Eye Exam Eye Exam: PERRL - ENT Exam ENT Exam: Normal Exam - Neck Exam Neck Exam: Normal Inspection - Respiratory Exam Respiratory Exam: Decreased Breath Sounds (at bases), Rhonchi (at bases) - Cardiovascular Exam Cardiovascular Exam: REGULAR RHYTHM - GI/Abdominal Exam GI & Abdominal Exam: Soft, Normal Bowel Sounds - Extremities Exam Additional comments: Edema BLE - Back Exam Back Exam: NORMAL INSPECTION - Neurological Exam Neurological Exam: Alert, Oriented x3. absent: Motor Sensory Deficit - Psychiatric Exam Psychiatric exam: Normal Mood - Skin Skin Exam: Warm Assessment and Plan (1) COPD exacerbation Status: Acute (2) Atypical chest pain Status: Acute (3) HTN (hypertension) Status: Acute (4) S/P coronary artery stent placement Status: Chronic (5) Hyperlipidemia Status: Chronic
--- NOTE | 2018-05-12 18:58 | CP.PCM.DIS ---
Provider - Provider Date of Admission: 05/10/18 20:21 Attending physician: Chip Sharma MD Diagnosis - Discharge Diagnosis (1) COPD exacerbation Status: Acute Priority: High (2) Atypical chest pain Status: Acute Priority: High (3) HTN (hypertension) Status: Acute Priority: High (4) S/P coronary artery stent placement Status: Chronic Priority: High (5) Hyperlipidemia Status: Chronic Priority: Medium Hospital Course - Lab Results Lab Results: Most Recent Lab Values WBC 19.9 K/uL (4.8-10.8) H D 05/12/18 10:38 RBC 4.38 Mil/uL (4.40-5.90) L 05/12/18 10:38 Hgb 9.9 g/dL (12.0-18.0) L 05/12/18 10:38 Hct 31.6 % (35.0-51.0) L 05/12/18 10:38 MCV 72.1 fl (80.0-94.0) L 05/12/18 10:38 MCH 22.6 pg (27.0-31.0) L 05/12/18 10:38 MCHC 31.4 g/dL (33.0-37.0) L 05/12/18 10:38 RDW 17.3 % (11.5-14.5) H 05/12/18 10:38 Plt Count 280 K/uL (130-400) 05/12/18 10:38 MPV 9.3 fl (7.2-11.7) 05/08/18 08:45 Neut % (Auto) 61.0 % (50.0-75.0) 05/08/18 08:45 Lymph % (Auto) 26.4 % (20.0-40.0) 05/08/18 08:45 [place] % (Auto) 6.3 % (0.0-10.0) 05/08/18 08:45 Eos % (Auto) 5.4 % (0.0-4.0) H 05/08/18 08:45 Baso % (Auto) 0.9 % (0.0-2.0) 05/08/18 08:45 Neut # (Auto) 7.1 K/uL (1.8-7.0) H 05/08/18 08:45 Lymph # (Auto) 3.0 K/uL (1.0-4.3) 05/08/18 08:45 [place] # (Auto) 0.7 K/uL (0.0-0.8) 05/08/18 08:45 Eos # (Auto) 0.6 K/uL (0.0-0.7) 05/08/18 08:45 Baso # (Auto) 0.1 K/uL (0.0-0.2) 05/08/18 08:45 Sodium 140 mmol/l (132-148) 05/12/18 10:38 Potassium 3.9 MMOL/L (3.6-5.0) 05/12/18 10:38 Chloride 106 mmol/L (98-107) 05/12/18 10:38 Carbon Dioxide 23 mmol/L (22-30) 05/12/18 10:38 Anion Gap 15 (10-20) 05/12/18 10:38 BUN 22 mg/dl (9-20) H 05/12/18 10:38 Creatinine 0.9 mg/dl (0.8-1.5) 05/12/18 10:38 Est GFR ( Amer) > 60 05/12/18 10:38 Est GFR (Non-Af Amer) > 60 05/12/18 10:38 POC Glucose (mg/dL) 189 mg/dL (65-110) H 05/12/18 10:54 Random Glucose 206 mg/dL (75-110) H 05/12/18 10:38 Calcium 8.4 mg/dL (8.4-10.2) 05/12/18 10:38 Total Bilirubin 0.4 mg/dl (0.2-1.3) 05/08/18 08:45 AST 31 U/L (17-59) 05/08/18 08:45 ALT 24 U/L (21-72) 05/08/18 08:45 Alkaline Phosphatase 117 U/L (38-126) 05/08/18 08:45 Troponin I < 0.0120 ng/mL (0.00-0.120) 05/08/18 22:00 Total Protein 7.7 G/DL (6.3-8.2) 05/08/18 08:45 Albumin 3.9 g/dL (3.5-5.0) 05/08/18 08:45 Globulin 3.8 gm/dL (2.2-3.9) 05/08/18 08:45 Albumin/Globulin Ratio 1.0 (1.0-2.1) 05/08/18 08:45 Urine Color Yellow (YELLOW) 05/08/18 13:56 Urine Clarity Clear (Clear) 05/08/18 13:56 Urine pH 5.0 (5.0-8.0) 05/08/18 13:56 Ur Specific [place] 1.013 (1.003-1.030) 05/08/18 13:56 Urine Protein Negative mg/dL (NEGATIVE) 05/08/18 13:56 Urine Glucose (UA) Neg mg/dL (Normal) 05/08/18 13:56 Urine Ketones Negative mg/dL (NEGATIVE) 05/08/18 13:56 Urine Blood Negative (NEGATIVE) 05/08/18 13:56 Urine Nitrate Negative (NEGATIVE) 05/08/18 13:56 Urine Bilirubin Negative (NEGATIVE) 05/08/18 13:56 Urine Urobilinogen 2.0 mg/dL (0.2-1.0) 05/08/18 13:56 Ur Leukocyte Esterase Neg [place]/uL (Negative) 05/08/18 13:56 Urine RBC (Auto) < 1 /hpf (0-3) 05/08/18 13:56 Urine Microscopic WBC < 1 /hpf (0-5) 05/08/18 13:56 Ur Squamous Epith Cells < 1 /hpf (0-5) 05/08/18 13:56 Urine Bacteria Rare (<OCC) 05/08/18 13:56 Urine Opiates Screen Negative (NEGATIVE) 05/08/18 13:56 Urine Methadone Screen Negative (NEGATIVE) 05/08/18 13:56 Ur Barbiturates Screen Negative (NEGATIVE) 05/08/18 13:56 Ur Phencyclidine Scrn Negative (NEGATIVE) 05/08/18 13:56 Ur Amphetamines Screen Negative (NEGATIVE) 05/08/18 13:56 U Benzodiazepines Scrn Negative (NEGATIVE) 05/08/18 13:56 U Oth Cocaine Metabols Negative (NEGATIVE) 05/08/18 13:56 U Cannabinoids Screen Negative (NEGATIVE) 05/08/18 13:56 Influenza Typ A,B (EIA) Negative for flu a/b (NEGATIVE) 05/08/18 08:55 Discharge Exam - Head Exam Head Exam: NORMAL INSPECTION Discharge Plan - Discharge Medications Prescriptions: Methylprednisolone [Medrol Dose Pack (21 tabs)] 4 mg PO DAILY #21 tab guaiFENesin/Dextromethorphan [Mucinex-DM 600-30 mg] 1 tab PO BID #30 tab Azithromycin [Zithromax Tri-Robert] 500 mg PO DAILY #5 tablet - Follow Up Plan Condition: STABLE Disposition: HOME/ ROUTINE Instructions: Chest Pain (DC), Exacerbation of COPD (DC) Additional Instructions: follow up wit in 1 week Referrals: Sukhwinder Méndez MD [Family Provider] -
--- NOTE | 2018-05-14 13:38 | PQF ---
PROVIDER RESPONSE TEXT: Chronic Diastolic Heart Failure REVIEWER QUERY TEXT: Heart Failure Acuity and Type Congestive Heart Failure is documented in the Medical Record. Please document the type and acuity (in cludes probable or suspected) Such as: Type: -- Combined systolic and diastolic (heart failure with reduced ejection fraction and diastolic) dysfu nction -- Diastolic (HFpEF) -- Systolic (HFrEF) -- Left heart failure -- Right heart failure -- Right heart failure due to left heart failure -- High output failure -- End stage heart failure -- Other, please specify Acuity: -- Chronic -- previous history only -- Other, please specify The patient's Clinical Indicators include: Documentation of a PMH: CHF. ECHO: EF 60-65% EF, Grade I relaxation pattern. CXR: No acute cardiopulmonary disease NO pro BNP ordered Query created by: Rhonda Miguel on 05/12/2018 9:11 AM Electronically signed by: Chip Sharma MD 05/14/2018 1:35 PM
--- NOTE | 2018-05-14 13:38 | PQF ---
PROVIDER RESPONSE TEXT: Provider was unable to determine a response for this query. REVIEWER QUERY TEXT: Medication Correlation for Diagnosis Your help is needed in capturing diagnoses for the corresponding medications ordered. Please clarify in the documentation diagnoses for the following medication(s). Medications: Eliquis The patient's Clinical Indicators include: Eliquis 2.5 mg po q 12 hours Query created by: Rhonda Miguel on 05/12/2018 9:16 AM Electronically signed by: Chip Sharma MD 05/14/2018 1:35 PM
== END 2018-05-12 14:59 | disposition home or self-care (01) | DRG 191 ==
LOC: H.ER 08:06 → H.ERHOLD 11:19 → H.TEL 14:00 → OBSVTOIN 05-10 20:21
PROVIDERS: ADMIT Internal Medicine Pulmonary Disease; ATTEND Internal Medicine Pulmonary Disease
PROC: 3E0F73Z Introduction of Anti-inflammatory into Respiratory Tract, Via Natural or Artificial Opening (ICD-10-PCS; principal; 2018-05-10)
DX: J44.1 Chronic obstructive pulmonary disease with (acute) exacerbation (principal); I50.32 Chronic diastolic (congestive) heart failure; I11.0 Hypertensive heart disease with heart failure; I25.10 Atherosclerotic heart disease of native coronary artery without angina pectoris; R07.89 Other chest pain; G89.29 Other chronic pain; E78.5 Hyperlipidemia, unspecified; F16.10 Hallucinogen abuse, uncomplicated; F17.210 Nicotine dependence, cigarettes, uncomplicated; Z95.5 Presence of coronary angioplasty implant and graft

== ENCOUNTER 2018-05-14 19:03 | Emergency (ER) | payer MEDICARE ==
[2018-05-14 19:03] VITALS: BMI 25.8
--- NOTE | 2018-05-14 20:23 | ED PDOC ---
HPI: Chest Pain Time Seen by Provider: 05/14/18 19:20 Chief Complaint (Nursing): Chest Pain Chief Complaint (Provider): Fall and chest pain History Per: Patient History/Exam Limitations: no limitations Onset/Duration Of Symptoms: Hrs (today) Current Symptoms Are (Timing): Still Present Additional Complaint(s): Bill Mendoza is a 57 year old male, with a past medical history of chronic back pain, HTN, asthma, CAD with stents and COPD, who was brought to the emergen cy department by EMS complaining of chest pain and reports falling prior to arrival. Patient was seen on 05/08 for the same chest pain but states he didn't fill his prescriptions or taken any medication for symptoms. He denies any fever, chills, nausea, vomit, diarrhea, dizziness or lightheadedness. No further medical complaints. PMD: Sukhwinder Keyes Past Medical History Reviewed: Historical Data, Nursing Documentation, Vital Signs Vital Signs: Last Vital Signs Temp 98.6 F 05/14/18 19:07 Pulse 127 H 05/14/18 19:37 Resp 22 05/14/18 19:07 BP 126/91 H 05/14/18 19:07 Pulse Ox 100 05/14/18 19:07 - Medical History PMH: Arthritis, Asthma, Bipolar Disorder, Bronchitis, CAD, CHF, COPD, Emphysema, Fractures (right foot, right leg,), Hiatal Hernia, HTN, Hyperlipidemia, Pneumothorax, Schizophrenia (denies) Denies: HIV, Chronic Kidney Disease - Surgical History Surgical History: Coronary Stent (x2; placed 1 year ago) Other surgeries: bilateral hip replacement - Family History Family History: States: Unknown Family Hx - Social History Current smoker - smoking cessation education provided: Yes (light smoker <10 cigarretes daily) Alcohol: None Drugs: Denies - Immunization History Hx Tetanus Toxoid Vaccination: No Hx Influenza Vaccination: No Hx Pneumococcal Vaccination: No - Home Medications Home Medications: Ambulatory Orders Medication Instructions Recorded RX: Aspirin [Aspirin Chewable] 81 mg PO DAILY 07/25/16 RX: Albuterol HFA [Ventolin HFA 90 2 puff IH Q4H PRN #1 inh 04/29/18 mcg/actuation (8 g)] RX: Apixaban [Eliquis] 2.5 mg PO Q12 05/08/18 RX: Glycopyrrolate/Formoterol Fum 2 puff IH Q12 05/08/18 [Bevespi Aerosphere Inhaler] RX: Metoprolol Succinate XL 25 mg PO DAILY 05/08/18 [Toprol XL] RX: Rosuvastatin Calcium [Crestor] 10 mg PO DAILY 05/08/18 RX: diltiaZEM [Cardizem] 90 mg PO DAILY 05/08/18 RX: oxyCODONE [oxyCODONE Immediate 15 mg PO Q6 PRN 05/08/18 Release Tab] Azithromycin [Zithromax Tri-Robert] 500 mg PO DAILY #5 tablet 05/12/18 Methylprednisolone [Medrol Dose 4 mg PO DAILY #21 tab 05/12/18 Pack (21 tabs)] RX: guaiFENesin/Dextromethorphan 1 tab PO BID #30 tab 05/12/18 [Mucinex-DM 600-30 mg] - Allergies Allergies/Adverse Reactions: Allergies Allergy/AdvReac Type Severity Reaction Status Date / Time No Known Allergies Allergy Verified 05/14/18 19:05 MAK Risk Score for UA/NSTEMI - MAK Risk Score Age > 64: NO 3 or more CAD Risk Factors: NO Known CAD (Stenosis greater than 50%): YES Aspirin use in past 7 days: NO Severe Angina: NO EKG ST changes greater than 0.5mm: NO Positive Cardiac Marker: NO MAK Score: 1 Risk %: 5% Wells Criteria for PE - Wells Criteria for Pulmonary Embolism Clinical Signs and Symptoms of DVT: No P.E is #1 Diagnosis, or Equally Likely: No Heart Rate >100: No Immobilization at least 3 days;Surgery previous 4 weeks: No Previous, objectively diagnosed PE or DVT: No Hemoptysis: No Malignancy w/treatment within 6 months, or palliative: No Total Score: 0 Review of Systems ROS Statement: Except As Marked, All Systems Reviewed And Found Negative Constitutional: Negative for: Fever, Chills Cardiovascular: Positive for: Chest Pain Respiratory: Negative for: Shortness of Breath Gastrointestinal: Negative for: Nausea, Vomiting, Diarrhea Physical Exam - Reviewed Nursing Documentation Reviewed: Yes Vital Signs Reviewed: Yes - Physical Exam Appears: Positive for: No Acute Distress Head Exam: Positive for: ATRAUMATIC, NORMAL INSPECTION, NORMOCEPHALIC Skin: Positive for: Normal Color, Warm, Dry Eye Exam: Positive for: Normal appearance, EOMI, PERRL ENT: Positive for: Normal ENT Inspection Neck: Positive for: Painless ROM Cardiovascular/Chest: Positive for: Regular Rate, Rhythm Respiratory: Positive for: Normal Breath Sounds. Negative for: Respiratory Distress Gastrointestinal/Abdominal: Positive for: Normal Exam, Soft. Negative for: Tenderness, Guarding, Rebound Back: Positive for: Normal Inspection. Negative for: L CVA Tenderness, R CVA Tenderness, Vertebral Tenderness Extremity: Positive for: Normal ROM (upper and lower extremities). Negative for: Calf Tenderness, Deformity, Swelling Neurologic/Psych: Positive for: Alert, Oriented - Laboratory Results Result Diagrams: 05/14/18 20:35 05/14/18 20:35 - ECG O2 Sat by Pulse Oximetry: 100 (RA) Pulse Ox Interpretation: Normal Medical Decision Making Medical Decision Making: Time: 19:52 Initial Impression: Chest pain- history of recurrent chest pain, has had cp in the recent past and been to the ER for same multiple times. pt appears comfortable and vitals stable at this time. Initial Plan: --CMP --Troponin I --CBC w/ differential --Sodium Chloride 1,000 ml IV 150 mls/hr --Reevaluation labs reviewed, similar to prior noted that throughout ER stay pt was comfortable, in no respiratory distress. requesting a sandwich and states he is hungry so far workup negative. ekg and troponin are normal. [id number] Patient comfortable throughout ER stay. Second troponin results negative. pt instructed to follow up with DR keyes his labor custodian in the for further evaluation. - Scribe Attestation: Documented by Marcus Moreau, acting as a scribe for Emy Mendez MD. Provider Scribe Attestation: All medical record entries made by the Scribe were at my direction and personally dictated by me. I have reviewed the chart and agree that the record accurately reflects my personal performance of the history, physical exam, medical decision making, and the department course for this patient. I have also personally directed, reviewed, and agree with the discharge instructions and disposition. Disposition - Clinical Impression Clinical Impression: Chest pain - Patient ED Disposition Is Patient to be Admitted: No Counseled Patient/Family Regarding: Studies Performed, Diagnosis, Need For Followup - Disposition Disposition: Routine/Home Disposition Time: 00:25 Condition: IMPROVED Additional Instructions: follow up with your primary doctor in 1-2 days (clinic) for reevaluation return to the ED with any worsening or concerning symptoms Instructions: Chest Pain (DC) Forms: [employer] ([place]vian)
[2018-05-14] MEDS ORDERED: Sodium Chloride 0.9% 1,000 ML IV SCH (20:30)
[2018-05-14 20:46] LABS: BASO % 0.2 % (0.0-2.0); EOS # 0.4 K/uL (0.0-0.7); EOS % 2.5 % (0.0-4.0); HEMOGLOBIN 11.5 g/dL (12.0-18.0); LYMPH # 4.9 K/uL (1.0-4.3); LYMPH % 28.9 % (20.0-40.0); MEAN CELL VOLUME 71.9 fl (80.0-94.0); MEAN CORPUSCULAR HEMOGLOBIN 22.2 pg (27.0-31.0); MEAN CORPUSCULAR HGB CONC 30.9 g/dL (33.0-37.0); MEAN PLATELET VOLUME 9.3 fl (7.2-11.7); MONO # 1.1 K/uL (0.0-0.8); MONO % 6.2 % (0.0-10.0); NEUT # 10.6 K/uL (1.8-7.0); NEUT % 62.2 % (50.0-75.0); NRBC % 0.1 % (0.0-0.0); RBC 5.16 Mil/uL (4.40-5.90); RED CELL DISTRIBUTION WIDTH 17.2 % (11.5-14.5); WHITE BLOOD COUNT 17.1 K/uL (4.8-10.8)
[2018-05-14 21:51] LABS: ALBUMIN 3.2 g/dL (3.5-5.0); ALT/SGPT 70 U/L (21-72); AST/SGOT 48 U/L (17-59); BLOOD UREA NITROGEN 17 mg/dl (9-20); GFR NON-AFRICAN AMERICAN > 60
[2018-05-14] MEDS ORDERED: Potassium Chloride 20 mEq ER Tab PO ONE ×2 (21:58→22:32)
[2018-05-14] MEDS ORDERED: DiphenhydrAMINE 50 mg/ml Inj IVP STA (22:21)
[2018-05-14 22:22] VITALS: RESP 16; TEMP 98.5
[2018-05-14] MEDS ORDERED: DiphenhydrAMINE 50 mg/ml Inj ONE (22:32)
[2018-05-14 23:02] LABS: OPIATES, UR NEGATIVE (NEGATIVE)
[2018-05-14 23:10] LABS: BARBITURATES, UR NEGATIVE (NEGATIVE); BENZODIAZEPINES, UR NEGATIVE (NEGATIVE); PHENCYCLIDINE, UR NEGATIVE (NEGATIVE)
[2018-05-15 00:31] VITALS: BP 126/90; PULSE 97
[2018-05-16 05:47] VITALS: O2SAT 100
== END 2018-05-15 00:51 | disposition home or self-care (01) ==
LOC: H.ER 19:03
DX: R07.89 Other chest pain (principal); I25.10 Atherosclerotic heart disease of native coronary artery without angina pectoris; I10 Essential (primary) hypertension; Z79.01 Long term (current) use of anticoagulants; Z95.5 Presence of coronary angioplasty implant and graft; Z96.643 Presence of artificial hip joint, bilateral; F17.200 Nicotine dependence, unspecified, uncomplicated
CPT/HCPCS: 80053; 84484; 85025; 96374; 99284; G0480; J1200; J7030